=== PATIENT | male | born 1935 ===

== ENCOUNTER 2021-11-02 13:20 | Inpatient (IN) | payer MEDICARE ==
[2021-11-03 06:50] LABS: Basophils # (Auto) 0.1 K/mm3 (0.0-0.1); Basophils % (Auto) 0.9 % (0.0-1.8); Eosinophils # (Auto) 0.1 K/mm3 (0.0-0.4); Eosinophils % (Auto) 1.6 % (0.0-4.3); Hematocrit 46.3 % (35.5-45.6); Hemoglobin 15.4 gm/dl (11.8-15.2); Lymphocytes # (Auto) 1.6 K/mm3 (1.2-5.4); Lymphocytes % (Auto) 25.9 % (13.4-35.0); Mean Corpuscular HGB Conc 33 % (32-34); Mean Corpuscular Volume 98 fl (84-94); Monocytes # (Auto) 0.6 K/mm3 (0.0-0.8); Platelet Count 241 K/mm3 (140-440); Red Blood Count 4.73 M/mm3 (3.65-5.03); Red Cell Distribution Width 13.4 % (13.2-15.2)
[2021-11-03 07:13] LABS: Alanine Aminotransferase 14 units/L (7-56); Albumin 3.9 g/dL (3.9-5); BUN/Creatinine Ratio 24; Blood Urea Nitrogen 19 mg/dL (9-20); Calcium 9.1 mg/dL (8.4-10.2); HDL Cholesterol 50 mg/dL (40-59); Hemolysis Index 10; LDL Cholesterol,Direct 101 mg/dL (50-130)
--- NOTE | 2021-11-03 09:13 | History and Physical Report ---
GP History & Physical - History of Present Illness Date of admission: 11/02/21 Date of Examination: 11/03/21 Reason for Admission: Danger to self, Failure of Outpatient Treatment, Severe anxiety/depression History of Present Illness: HPI: Delusional, Paranoid, and non-compliance. Per referral source, "patient was found wandering in [place] by PD. Daughter wants him checked out due to increased confusion. Hx of Dementia." The patient was seen today. He is an 86y/o male admitted to [facility] after PD found him wandering. The patient was said to be delusional and paranoid. During my evaluation the patient is [place]. He is confused and forgetful. The patient has poor insight and unable to give any history or into what's presently going with him. He says "I have problems with my memory." He says "I see the clock and all that but that's just it." He does not know why he was admitted into the hospital. He says "I actually don't know anything." PAST PSYCHIATRIC HISTORY Unable to assess PAST MEDICAL HISTORY: None reported Family Psychiatric History: None reported or documented SOCIAL HISTORY Unable to assess REVIEW OF SYSTEMS Unable to assess MENTAL STATUS EXAMINATION Unable to assess Assessment and Plan Dementia with Behavioral Disturbance Treatment Plan Patient admitted for inpatient psychiatric evaluation, medication adjustment and close monitoring The patient's behavior, mood, sleep and appetite will be closely monitored. Patient enrolled in individual and group therapeutic sessions and encouraged to attend. Patient provided with a safe and structured environment. Patient's physical health needs will be addressed by the Hospitalist. Hospitalist Consulted Labs including CBC, CMP, Lipid profile and Hemoglobin A1C levels ordered for baseline reference Social Assessment will be completed and the Regulatory Affairs Assistant will work with patient and family to ensure a suitable and safe disposition Medication adjustment will be made as clinically indicated Continue home medications Usual Wellness Religion/Preservation: - Start Trazodone 50 mg po QHS & 50 mg po QHS PRN between 10 PM & 2 AM for insomnia - Start Melatonin 5 mg po QHS to promote circadian rhythm The patient agreed on the treatment plan, understood the risk, benefit, alternative treatment, potential consequence of no treatment, and gave informed consent. Estimated days: Post hospital care: primary care provider, psychiatric provider Case staffed with Dr. Dukes Legal Status: Voluntary Reaction to Hospitalization: Accepting Medications and Allergies Allergies Allergy/AdvReac Type Severity Reaction Status Date / Time cyclobenzaprine AdvReac HALLUCINATI Verified 09/20/19 12:06 [From Flexeril] ONS diazepam AdvReac SEVERE Verified 09/20/19 12:05 HALLUCINATION Home Medications Medication Instructions Recorded Confirmed Last Taken Type Aspirin EC [Halfprin EC] 81 mg PO QDAY 09/20/19 11/02/21 Unknown History Benazepril HCl [Lotensin] 40 mg PO DAILY 09/20/19 11/02/21 Unknown History Cyanocobalamin (Vitamin B-12) 2,000 mcg PO DAILY 09/20/19 11/02/21 Unknown History [Vitamin B-12] Folic Acid/Multivit,Iron,[place] 1 each PO DAILY 09/20/19 11/02/21 Unknown History [One Daily Maximum Tablet] HYDROcodone/APAP 7.5-325 [[place] 7.5 mg PO PRN 09/20/19 11/02/21 Unknown History 7.5-325 mg TAB] [place]-3 Fatty Acids/Fish Oil [Fish 1,000 mg PO BID 09/20/19 11/02/21 Unknown History Oil] QUEtiapine [SEROquel] 25 mg PO QHS 09/20/19 11/02/21 Unknown History polyethylene glycoL 3350 [Miralax 17 gm PO BID 09/20/19 11/02/21 Unknown History 3350] DULoxetine [Cymbalta] 60 mg PO QDAY #30 capsule 09/27/19 11/02/21 Unknown Rx Doxepin [SINEquan] 25 mg PO QHS #30 capsule 09/27/19 11/02/21 Unknown Rx Active Meds: Active Medications Trazodone HCl (Trazodone 50 Mg Tab) 50 mg PO QHS [facility] Results - Results Labs/Vitals: Laboratory Last Values WBC 6.2 K/mm3 (4.5-11.0) 11/03/21 06:31 RBC 4.73 M/mm3 (3.65-5.03) 11/03/21 06:31 Hgb 15.4 gm/dl (11.8-15.2) H 11/03/21 06:31 Hct 46.3 % (35.5-45.6) H 11/03/21 06:31 MCV 98 fl (84-94) H 11/03/21 06:31 MCH 33 pg (28-32) H 11/03/21 06:31 MCHC 33 % (32-34) 11/03/21 06:31 RDW 13.4 % (13.2-15.2) 11/03/21 06:31 Plt Count 241 K/mm3 (140-440) 11/03/21 06:31 Lymph % (Auto) 25.9 % (13.4-35.0) 11/03/21 06:31 [place] % (Auto) 10.0 % (0.0-7.3) H 11/03/21 06:31 Eos % (Auto) 1.6 % (0.0-4.3) 11/03/21 06:31 Baso % (Auto) 0.9 % (0.0-1.8) 11/03/21 06:31 Lymph # (Auto) 1.6 K/mm3 (1.2-5.4) 11/03/21 06:31 [place] # (Auto) 0.6 K/mm3 (0.0-0.8) 11/03/21 06:31 Eos # (Auto) 0.1 K/mm3 (0.0-0.4) 11/03/21 06:31 Baso # (Auto) 0.1 K/mm3 (0.0-0.1) 11/03/21 06:31 Seg Neutrophils % 61.6 % (40.0-70.0) 11/03/21 06:31 Seg Neutrophils # 3.8 K/mm3 (1.8-7.7) 11/03/21 06:31 Sodium 142 mmol/L (137-145) 11/03/21 06:31 Potassium 4.0 mmol/L (3.6-5.0) 11/03/21 06:31 Chloride 108.0 mmol/L (98-107) H 11/03/21 06:31 Carbon Dioxide 24 mmol/L (22-30) 11/03/21 06:31 Anion Gap 14 mmol/L 11/03/21 06:31 BUN 19 mg/dL (9-20) 11/03/21 06:31 Creatinine 0.8 mg/dL (0.8-1.3) 11/03/21 06:31 Estimated GFR > 60 ml/min 11/03/21 06:31 BUN/Creatinine Ratio 24 % 11/03/21 06:31 Glucose 86 mg/dL (75-100) 11/03/21 06:31 Hemoglobin A1c 5.2 % (4-6) 11/03/21 06:31 Calcium 9.1 mg/dL (8.4-10.2) 11/03/21 06:31 Total Bilirubin 0.50 mg/dL (0.1-1.2) 11/03/21 06:31 AST 15 units/L (5-40) 11/03/21 06:31 ALT 14 units/L (7-56) 11/03/21 06:31 Alkaline Phosphatase 69 units/L (35-129) 11/03/21 06:31 Total Protein 6.2 g/dL (6.3-8.2) L 11/03/21 06:31 Albumin 3.9 g/dL (3.9-5) 11/03/21 06:31 Albumin/Globulin Ratio 1.7 % 11/03/21 06:31 Triglycerides 78 mg/dL (2-149) 11/03/21 06:31 Cholesterol 160 mg/dL (50-199) 11/03/21 06:31 LDL Cholesterol Direct 101 mg/dL (50-130) 11/03/21 06:31 HDL Cholesterol 50 mg/dL (40-59) 11/03/21 06:31 Cholesterol/HDL Ratio 3.20 % 11/03/21 06:31 TSH 1.250 mlU/mL (0.270-4.200) 11/03/21 06:31 Last Vital Signs Temp 97.5 F L 11/02/21 22:19 Pulse 75 11/02/21 22:19 Resp 18 11/02/21 22:19 BP 160/88 11/02/21 22:19 Pulse Ox 100 11/02/21 22:19 Physical Examination - Constitutional Vitals: Vital Signs Temp Pulse Resp BP Pulse Ox 97.5 F L 75 18 160/88 100 11/02/21 22:19 11/02/21 22:19 11/02/21 22:19 11/02/21 22:19 11/02/21 22:19 Temperature -Last 24 Hours Temperature 97.5 F Mental Status Exam - Vital signs Last Vital Signs Temp 97.5 F L 11/02/21 22:19 Pulse 75 11/02/21 22:19 Resp 18 11/02/21 22:19 BP 160/88 11/02/21 22:19 Pulse Ox 100 11/02/21 22:19 Physician Certification - Certification Statement Physician Certification Statement: This is an acknowledgement statement that JOYCE CHADWICK is a 86 year old M who requires inpatient psychiatric admission for treatment which could reasonably be expected to improve the patient's condition for Estimated period of time patient will need to remain in the hospital: [ ] Plan for post-hospital care: [ ]
[2021-11-03] MEDS ORDERED: BENAZEPRIL HCL 40 MG PO SCH (10:00)
[2021-11-03] MEDS ORDERED: IRON PO SCH (10:00)
[2021-11-03] MEDS ORDERED: FOLIC ACID PO SCH (10:00)
[2021-11-03] MEDS ORDERED: MULTIVITAMIN PO SCH (10:00)
[2021-11-03] MEDS ORDERED: MINERALS PO SCH (10:00)
[2021-11-03] MEDS ORDERED: [UNRECOGNIZED DRUG - OTHER] PO SCH (10:00)
[2021-11-03] MEDS ORDERED: CYANOCOBALAMIN 2000 MCG PO SCH (10:00)
[2021-11-03] MEDS: OMEGA-3 FATTY ACIDS/FISH OIL 1 GRAM CAP PO SCH ×2 (10:43→21:17)
[2021-11-03] MEDS: ASPIRIN EC 81 MG TAB PO SCH (10:43)
[2021-11-03] MEDS: MULTIVITAMINS,THER W-MINERALS TAB PO SCH (10:43)
[2021-11-03] MEDS: DULoxetine 30 MG CAP PO SCH (10:43)
[2021-11-03] MEDS: LISINOPRIL 40 MG TAB PO SCH (11:43)
[2021-11-03] MEDS ORDERED: HYDROcodone/ACETAMINOPHEN 7.5-325MG TAB PO PRN (14:00)
[2021-11-03] MEDS: POLYETHYLENE GLYCOL 3350 17 GM POWDER PO SCH ×2 (15:00→21:17)
--- NOTE | 2021-11-03 16:18 | Consultation ---
History of Present Illness - Reason for Consult Consult date: 11/03/21 Medical Management Requesting physician: ELISEO GROSSMAN - History of Present Illness 86 YO Male with Vascular Dementia with Behavioral Disturbance, Cerebral Atherosclerosis, HTN, CAD S/P Stent placement, GERD, LDD, OA, Skin Cancer, MDD, admitted to [facility] for psychiatric stabilization. Consult placed by Dr. Grossman for medical management. The patient was seen and evaluated in the recreation room. Patient denies fever, chills, chest pain, palpitation, productive cough, skin rash, recent contact, no exposure to COVID-19. No reported nursing events. Patient is at baseline level of cognition and function. Past History Past Medical History: arthritis, cancer, GERD, hypertension Past Surgical History: Other (Back surgery) Social history: , lives with family Family history: hypertension Medications and Allergies Allergies Allergy/AdvReac Type Severity Reaction Status Date / Time cyclobenzaprine AdvReac HALLUCINATI Verified 09/20/19 12:06 [From Flexeril] ONS diazepam AdvReac SEVERE Verified 09/20/19 12:05 HALLUCINATION Home Medications Medication Instructions Recorded Confirmed Last Taken Type Aspirin EC [Halfprin EC] 81 mg PO QDAY 09/20/19 11/02/21 Unknown History Benazepril HCl [Lotensin] 40 mg PO DAILY 09/20/19 11/02/21 Unknown History Cyanocobalamin (Vitamin B-12) 2,000 mcg PO DAILY 09/20/19 11/02/21 Unknown History [Vitamin B-12] Folic Acid/Multivit,Iron,Field Service Rep 1 each PO DAILY 09/20/19 11/02/21 Unknown History [One Daily Maximum Tablet] HYDROcodone/APAP 7.5-325 [[place] 7.5 mg PO PRN 09/20/19 11/02/21 Unknown History 7.5-325 mg TAB] [place]-3 Fatty Acids/Fish Oil [Fish 1,000 mg PO BID 09/20/19 11/02/21 Unknown [place] Oil] QUEtiapine [SEROquel] 25 mg PO QHS 09/20/19 11/02/21 Unknown History polyethylene glycoL 3350 [Miralax 17 gm PO BID 09/20/19 11/02/21 Unknown History 3350] DULoxetine [Cymbalta] 60 mg PO QDAY #30 capsule 09/27/19 11/02/21 Unknown Rx Doxepin [SINEquan] 25 mg PO QHS #30 capsule 09/27/19 11/02/21 Unknown Rx Active Meds: Active Medications Hydrocodone Bitart/Acetaminophen (Hydrocodone/Acetaminophen 7.5-325mg Tab) 1 each PO Q8HR PRN PRN Reason: Pain, Moderate (4-6) Aspirin (Aspirin Ec 81 Mg Tab) 81 mg PO QDAY [facility] Last Admin: 11/03/21 10:43 Dose: 81 mg Cyanocobalamin (Cyanocobalamin (Vit B-12) 1000 Mcg Tab) 2,000 mcg PO QDAY [facility] Doxepin HCl (Doxepin 25 Mg Cap) 25 mg PO QHS [facility] Duloxetine HCl (Duloxetine 30 Mg Cap) 60 mg PO QDAY [facility] Last Admin: 11/03/21 10:43 Dose: 60 mg Fish Oil ([place]-3 Fatty Acids/Fish Oil 1 Gram Cap) 1,000 mg PO BID [facility] Last Admin: 11/03/21 10:43 Dose: 1,000 mg Lisinopril (Lisinopril 40 Mg Tab) 40 mg PO QDAY [facility] Last Admin: 11/03/21 11:43 Dose: Not Given Multivitamins/Minerals (Multivitamins,Ther W-Minerals Tab) 1 each PO QDAY [facility] Last Admin: 11/03/21 10:43 Dose: 1 each Polyethylene Glycol (Polyethylene Glycol 3350 17 Gm Powder) 17 gm PO BID [facility] Last Admin: 11/03/21 15:00 Dose: Not Given Quetiapine Fumarate (Quetiapine 25 Mg Tab) 25 mg PO QHS [facility] Trazodone HCl (Trazodone 50 Mg Tab) 50 mg PO QHS [facility] Review of Systems Constitutional: no weight loss, no weight gain, no fever, no chills Ears, nose, mouth and throat: no ear pain, no ear discharge, no nasal discharge Cardiovascular: no chest pain, no orthopnea, no palpitations, no rapid/irregular heart beat, no edema Respiratory: no cough, no excessive sputum, no dyspnea on exertion Gastrointestinal: no abdominal pain, no nausea, no vomiting, no constipation, no change in bowel habits Genitourinary Male: no hematuria, no flank pain, no discharge, no urinary frequency, no urinary hesitancy Rectal: no pain, no incontinence, no bleeding Musculoskeletal: no neck stiffness, no neck pain, no shooting arm pain, no arm numbness/tingling Integumentary: no rash, no pruritis, no redness, no jaundice Neurological: no head injury, no transient paralysis, no tingling, no seizures Psychiatric: anxiety, depression, difficulties concentrating, mood swings Endocrine: no cold intolerance, no heat intolerance, no polydipsia Hematologic/Lymphatic: no easy bruising, no easy bleeding, no lymphadenopathy Allergic/Immunologic: no urticaria, no wheezing, no persistent infections, no angioedema Exam - Constitutional Vitals: Temp Pulse Resp BP Pulse Ox 97.5 F L 91 H 16 126/71 98 11/02/21 22:19 11/03/21 08:43 11/03/21 08:43 11/03/21 08:43 11/03/21 08:43 General appearance: Present: no acute distress, well-nourished - EENT Eyes: Present: PERRL ENT: hearing intact, clear oral mucosa - Neck Neck: Present: supple, normal ROM - Respiratory Respiratory effort: normal Respiratory: bilateral: CTA - Cardiovascular Heart Sounds: Present: S1 & S2. Absent: rub, click - Extremities Extremities: pulses symmetrical, No edema Peripheral Pulses: within normal limits - Abdominal General gastrointestinal: Present: soft, non-tender, non-distended, normal bowel sounds Male genitourinary: Present: normal - Integumentary Integumentary: Present: clear, warm, dry - Musculoskeletal Musculoskeletal: gait normal, strength equal bilaterally - Psychiatric Psychiatric: appropriate mood/affect, intact judgment & insight - Neurologic Neurologic: CNII-XII intact, moves all extremities Results - Labs CBC & Chem 7: 11/03/21 06:31 11/03/21 06:31 Labs: Abnormal lab results 11/03/21 11/03/21 Range/Units 06:31 06:31 Hgb 15.4 H (11.8-15.2) gm/dl Hct 46.3 H (35.5-45.6) % MCV 98 H (84-94) fl MCH 33 H (28-32) pg [place] % (Auto) 10.0 H (0.0-7.3) % Chloride 108.0 H (98-107) mmol/L Total Protein 6.2 L (6.3-8.2) g/dL Assessment and Plan - Patient Problems (1) Vascular dementia with behavioral disturbance Current Visit: Yes Status: Acute Plan to address problem: Verbal prompting, verbal redirection, benzodiazepine therapy as clinically indicated, supportive care. (2) Cerebral atherosclerosis Current Visit: Yes Status: Acute Plan to address problem: Risk factor reduction, antiplatelet therapy as clinically indicated, supportive care. (3) Major depression Current Visit: Yes Status: Acute Plan to address problem: Supportive care, continue medical management. (4) Coronary artery disease Current Visit: No Status: Chronic Qualifiers: Coronary Disease-Associated Artery/Lesion type: [place] artery [place] vs. transplanted heart: [place] heart Associated angina: without angina Qualified Code(s): I25.10 - Atherosclerotic heart disease of [place] coronary artery without angina pectoris Plan to address problem: Supportive care, continue medical management, risk factor reduction, antiplatel et therapy as clinically indicated. (5) GERD (gastroesophageal reflux disease) Current Visit: No Status: Chronic Qualifiers: Esophagitis presence: without esophagitis Qualified Code(s): K21.9 - Gastro-esophageal reflux disease without esophagitis Plan to address problem: PPI therapy, supportive care. (6) Hypertension Current Visit: No Status: Chronic Qualifiers: Hypertension type: primary hypertension Qualified Code(s): I10 - Essential (primary) hypertension Plan to address problem: Monitor blood pressure every shift, continue medical management (7) Advance care planning Current Visit: Yes Status: Acute Plan to address problem: Disease education conducted, care plan discussed, diagnoses discussed, prognosis discussed, patient is full code. Patient knowledges understanding and agreem ent with care plan, +30 minutes.
[2021-11-03] MEDS: traZODone 50 MG TAB PO SCH (21:17)
[2021-11-03] MEDS: QUEtiapine 25 MG TAB PO SCH (21:17)
[2021-11-03] MEDS: DOXEPIN 25 MG CAP PO SCH (21:17)
--- NOTE | 2021-11-04 08:07 | Progress Note ---
Subjective Date of service: 11/04/21 Principal diagnosis: Dementia with Behavioral Disturbance Subjective Comment: The patient was seen today. He is lying in bed awake. He is calm and cooperative. He is pleasant. The patient is [place]. He is confused and has poor insight. He says he slept good. He says "I was asleep." He repeated this twice. I ask the patient how did he feel, he says "fine, except I was asleep." He denies SI/HI. The patient has been noted to have periods of agitation, and reported delusions from staff and family. REVIEW OF SYSTEMS Unable to assess MENTAL STATUS EXAMINATION Unable to assess Assessment and Plan Dementia with Behavioral Disturbance Treatment Plan Patient admitted for inpatient psychiatric evaluation, medication adjustment and close monitoring The patient's behavior, mood, sleep and appetite will be closely monitored. Patient enrolled in individual and group therapeutic sessions and encouraged to attend. Patient provided with a safe and structured environment. Patient's physical health needs will be addressed by the Hospitalist. Hospitalist Consulted Labs including CBC, CMP, Lipid profile and Hemoglobin A1C levels ordered for baseline reference Social Assessment will be completed and the Open Hearth Laborer will work with patient and family to ensure a suitable and safe disposition Medication adjustment will be made as clinically indicated Start Valproic acid 125mg po daily Usual Wellness Shinto/Preservation: - Start Trazodone 50 mg po QHS & 50 mg po QHS PRN between 10 PM & 2 AM for insomnia - Start Melatonin 5 mg po QHS to promote circadian rhythm The patient agreed on the treatment plan, understood the risk, benefit, alternative treatment, potential consequence of no treatment, and gave informed consent. Estimated days: Post hospital care: primary care provider, psychiatric provider Case staffed with Dr. Dukes Medications and Allergies Allergies Allergy/AdvReac Type Severity Reaction Status Date / Time cyclobenzaprine AdvReac HALLUCINATI Verified 09/20/19 12:06 [From Flexeril] ONS diazepam AdvReac SEVERE Verified 09/20/19 12:05 HALLUCINATION Home Medications Medication Instructions Recorded Confirmed Last Taken Type Aspirin EC [Halfprin EC] 81 mg PO QDAY 09/20/19 11/02/21 Unknown History Benazepril HCl [Lotensin] 40 mg PO DAILY 09/20/19 11/02/21 Unknown History Cyanocobalamin (Vitamin B-12) 2,000 mcg PO DAILY 09/20/19 11/02/21 Unknown History [Vitamin B-12] Folic Acid/Multivit,Iron,Office Clin Asst 1 each PO DAILY 09/20/19 11/02/21 Unknown History [One Daily Maximum Tablet] HYDROcodone/APAP 7.5-325 [[place] 7.5 mg PO PRN 09/20/19 11/02/21 Unknown History 7.5-325 mg TAB] [place]-3 Fatty Acids/Fish Oil [Fish 1,000 mg PO BID 09/20/19 11/02/21 Unknown History Oil] QUEtiapine [SEROquel] 25 mg PO QHS 09/20/19 11/02/21 Unknown History polyethylene glycoL 3350 [Miralax 17 gm PO BID 09/20/19 11/02/21 Unknown History 3350] DULoxetine [Cymbalta] 60 mg PO QDAY #30 capsule 09/27/19 11/02/21 Unknown Rx Doxepin [SINEquan] 25 mg PO QHS #30 capsule 09/27/19 11/02/21 Unknown Rx Active Meds: Active Medications Hydrocodone Bitart/Acetaminophen (Hydrocodone/Acetaminophen 7.5-325mg Tab) 1 each PO Q8HR PRN PRN Reason: Pain, Moderate (4-6) Aspirin (Aspirin Ec 81 Mg Tab) 81 mg PO QDAY [facility] Last Admin: 11/03/21 10:43 Dose: 81 mg Cyanocobalamin (Cyanocobalamin (Vit B-12) 1000 Mcg Tab) 2,000 mcg PO QDAY [facility] Doxepin HCl (Doxepin 25 Mg Cap) 25 mg PO QHS [facility] Last Admin: 11/03/21 21:17 Dose: 25 mg Duloxetine HCl (Duloxetine 30 Mg Cap) 60 mg PO QDAY [facility] Last Admin: 11/03/21 10:43 Dose: 60 mg Fish Oil ([place]-3 Fatty Acids/Fish Oil 1 Gram Cap) 1,000 mg PO BID [facility] Last Admin: 11/03/21 21:17 Dose: 1,000 mg Lisinopril (Lisinopril 40 Mg Tab) 40 mg PO QDAY [facility] Last Admin: 11/03/21 11:43 Dose: Not Given Multivitamins/Minerals (Multivitamins,Ther W-Minerals Tab) 1 each PO QDAY [facility] Last Admin: 11/03/21 10:43 Dose: 1 each Polyethylene Glycol (Polyethylene Glycol 3350 17 Gm Powder) 17 gm PO BID [facility] Last Admin: 11/03/21 21:17 Dose: 17 gm Quetiapine Fumarate (Quetiapine 25 Mg Tab) 25 mg PO QHS [facility] Last Admin: 11/03/21 21:17 Dose: 25 mg Trazodone HCl (Trazodone 50 Mg Tab) 50 mg PO QHS [facility] Last Admin: 11/03/21 21:17 Dose: 50 mg Results - Results Labs/Vitals: Laboratory Last Values WBC 6.2 K/mm3 (4.5-11.0) 11/03/21 06:31 RBC 4.73 M/mm3 (3.65-5.03) 11/03/21 06:31 Hgb 15.4 gm/dl (11.8-15.2) H 11/03/21 06:31 Hct 46.3 % (35.5-45.6) H 11/03/21 06:31 MCV 98 fl (84-94) H 11/03/21 06:31 MCH 33 pg (28-32) H 11/03/21 06:31 MCHC 33 % (32-34) 11/03/21 06:31 RDW 13.4 % (13.2-15.2) 11/03/21 06:31 Plt Count 241 K/mm3 (140-440) 11/03/21 06:31 Lymph % (Auto) 25.9 % (13.4-35.0) 11/03/21 06:31 [place] % (Auto) 10.0 % (0.0-7.3) H 11/03/21 06:31 Eos % (Auto) 1.6 % (0.0-4.3) 11/03/21 06:31 Baso % (Auto) 0.9 % (0.0-1.8) 11/03/21 06:31 Lymph # (Auto) 1.6 K/mm3 (1.2-5.4) 11/03/21 06:31 [place] # (Auto) 0.6 K/mm3 (0.0-0.8) 11/03/21 06:31 Eos # (Auto) 0.1 K/mm3 (0.0-0.4) 11/03/21 06:31 Baso # (Auto) 0.1 K/mm3 (0.0-0.1) 11/03/21 06:31 Seg Neutrophils % 61.6 % (40.0-70.0) 11/03/21 06:31 Seg Neutrophils # 3.8 K/mm3 (1.8-7.7) 11/03/21 06:31 Sodium 142 mmol/L (137-145) 11/03/21 06:31 Potassium 4.0 mmol/L (3.6-5.0) 11/03/21 06:31 Chloride 108.0 mmol/L (98-107) H 11/03/21 06:31 Carbon Dioxide 24 mmol/L (22-30) 11/03/21 06:31 Anion Gap 14 mmol/L 11/03/21 06:31 BUN 19 mg/dL (9-20) 11/03/21 06:31 Creatinine 0.8 mg/dL (0.8-1.3) 11/03/21 06:31 Estimated GFR > 60 ml/min 11/03/21 06:31 BUN/Creatinine Ratio 24 % 11/03/21 06:31 Glucose 86 mg/dL (75-100) 11/03/21 06:31 Hemoglobin A1c 5.2 % (4-6) 11/03/21 06:31 Calcium 9.1 mg/dL (8.4-10.2) 11/03/21 06:31 Total Bilirubin 0.50 mg/dL (0.1-1.2) 11/03/21 06:31 AST 15 units/L (5-40) 11/03/21 06:31 ALT 14 units/L (7-56) 11/03/21 06:31 Alkaline Phosphatase 69 units/L (35-129) 11/03/21 06:31 Total Protein 6.2 g/dL (6.3-8.2) L 11/03/21 06:31 Albumin 3.9 g/dL (3.9-5) 11/03/21 06:31 Albumin/Globulin Ratio 1.7 % 11/03/21 06:31 Triglycerides 78 mg/dL (2-149) 11/03/21 06:31 Cholesterol 160 mg/dL (50-199) 11/03/21 06:31 LDL Cholesterol Direct 101 mg/dL (50-130) 11/03/21 06:31 HDL Cholesterol 50 mg/dL (40-59) 11/03/21 06:31 Cholesterol/HDL Ratio 3.20 % 11/03/21 06:31 TSH 1.250 mlU/mL (0.270-4.200) 11/03/21 06:31 Last Vital Signs Temp 98.4 F 11/03/21 22:00 Pulse 92 H 11/03/21 22:00 Resp 18 11/03/21 22:00 BP 143/80 11/03/21 22:00 Pulse Ox 96 11/03/21 22:00
[2021-11-04] MEDS: CYANOCOBALAMIN (VIT B-12) 1000 MCG TAB PO SCH (09:54)
[2021-11-04] MEDS: OMEGA-3 FATTY ACIDS/FISH OIL 1 GRAM CAP PO SCH ×2 (09:55→21:27)
[2021-11-04] MEDS: DULoxetine 30 MG CAP PO SCH (09:55)
[2021-11-04] MEDS: MULTIVITAMINS,THER W-MINERALS TAB PO SCH (09:55)
[2021-11-04] MEDS: VALPROIC ACID 250 MG/5 ML ORAL LIQD PO SCH (09:55)
[2021-11-04] MEDS: ASPIRIN EC 81 MG TAB PO SCH (09:55)
[2021-11-04] MEDS: POLYETHYLENE GLYCOL 3350 17 GM POWDER PO SCH ×2 (10:06→21:28)
[2021-11-04] MEDS: LISINOPRIL 40 MG TAB PO SCH (10:06)
--- NOTE | 2021-11-04 20:21 | Progress Note ---
Assessment and Plan - Patient Problems (1) Vascular dementia with behavioral disturbance Current Visit: Yes Status: Acute Plan to address problem: Verbal prompting, verbal redirection, benzodiazepine therapy as clinically indicated, supportive care. (2) Cerebral atherosclerosis Current Visit: Yes Status: Acute Plan to address problem: Risk factor reduction, antiplatelet therapy as clinically indicated, supportive care. (3) Major depression Current Visit: Yes Status: Acute Plan to address problem: Supportive care, continue medical management. (4) Coronary artery disease Current Visit: No Status: Chronic Qualifiers: Coronary Disease-Associated Artery/Lesion type: [place] artery [place] vs. transplanted heart: [place] heart Associated angina: without angina Qualified Code(s): I25.10 - Atherosclerotic heart disease of [place] coronary artery without angina pectoris Plan to address problem: Supportive care, continue medical management, risk factor reduction, antiplatelet therapy as clinically indicated. (5) GERD (gastroesophageal reflux disease) Current Visit: No Status: Chronic Qualifiers: Esophagitis presence: without esophagitis Qualified Code(s): K21.9 - Gastro-esophageal reflux disease without esophagitis Plan to address problem: PPI therapy, supportive care. (6) Hypertension Current Visit: No Status: Chronic Qualifiers: Hypertension type: primary hypertension Qualified Code(s): I10 - Essential (primary) hypertension Plan to address problem: Monitor blood pressure every shift, continue medical management (7) Advance care planning Current Visit: Yes Status: Acute Plan to address problem: Disease education conducted, care plan discussed, diagnoses discussed, prognosis discussed, patient is full code. Patient knowledges understanding and agreement with care plan, +30 minutes. History Interval history: 86 YO Male with Vascular Dementia with Behavioral Disturbance, Cerebral Athe rosclerosis, HTN, CAD S/P Stent placement, GERD, LDD, OA, Skin Cancer, MDD, admitted to [facility] psych unit for psychiatric stabilization. Consult placed by Dr. Reyes for medical management. The patient was seen and evaluated in the recreation room. Patient is at baseline level of cognition and function. Hospitalist Physical - Constitutional Vitals: Temp Pulse Resp BP Pulse Ox 98.3 F 83 18 124/71 96 11/04/21 09:46 11/04/21 10:06 11/04/21 09:46 11/04/21 10:06 11/04/21 09:46 General appearance: Present: no acute distress, well-nourished - EENT Eyes: Present: PERRL ENT: hearing decreased - Neck Neck: Present: supple - Respiratory Respiratory: bilateral: CTA - Cardiovascular Rhythm: regular Heart Sounds: Present: S1 & S2 - Extremities Extremities: no ischemia Peripheral Pulses: within normal limits - Abdominal General gastrointestinal: soft, non-tender, non-distended - Integumentary Integumentary: Present: clear, dry - Psychiatric Psychiatric: cooperative - Neurologic Neurologic: CNII-XII intact Results - Labs CBC & Chem 7: 11/03/21 06:31 11/03/21 06:31 Labs: Laboratory Last Values WBC 6.2 K/mm3 (4.5-11.0) 11/03/21 06:31 RBC 4.73 M/mm3 (3.65-5.03) 11/03/21 06:31 Hgb 15.4 gm/dl (11.8-15.2) H 11/03/21 06:31 Hct 46.3 % (35.5-45.6) H 11/03/21 06:31 MCV 98 fl (84-94) H 11/03/21 06:31 MCH 33 pg (28-32) H 11/03/21 06:31 MCHC 33 % (32-34) 11/03/21 06:31 RDW 13.4 % (13.2-15.2) 11/03/21 06:31 Plt Count 241 K/mm3 (140-440) 11/03/21 06:31 Lymph % (Auto) 25.9 % (13.4-35.0) 11/03/21 06:31 [place] % (Auto) 10.0 % (0.0-7.3) H 11/03/21 06:31 Eos % (Auto) 1.6 % (0.0-4.3) 11/03/21 06:31 Baso % (Auto) 0.9 % (0.0-1.8) 11/03/21 06:31 Lymph # (Auto) 1.6 K/mm3 (1.2-5.4) 11/03/21 06:31 [place] # (Auto) 0.6 K/mm3 (0.0-0.8) 11/03/21 06:31 Eos # (Auto) 0.1 K/mm3 (0.0-0.4) 11/03/21 06:31 Baso # (Auto) 0.1 K/mm3 (0.0-0.1) 11/03/21 06:31 Seg Neutrophils % 61.6 % (40.0-70.0) 11/03/21 06:31 Seg Neutrophils # 3.8 K/mm3 (1.8-7.7) 11/03/21 06:31 Sodium 142 mmol/L (137-145) 11/03/21 06:31 Potassium 4.0 mmol/L (3.6-5.0) 11/03/21 06:31 Chloride 108.0 mmol/L (98-107) H 11/03/21 06:31 Carbon Dioxide 24 mmol/L (22-30) 11/03/21 06:31 Anion Gap 14 mmol/L 11/03/21 06:31 BUN 19 mg/dL (9-20) 11/03/21 06:31 Creatinine 0.8 mg/dL (0.8-1.3) 11/03/21 06:31 Estimated GFR > 60 ml/min 11/03/21 06:31 BUN/Creatinine Ratio 24 % 11/03/21 06:31 Glucose 86 mg/dL (75-100) 11/03/21 06:31 Hemoglobin A1c 5.2 % (4-6) 11/03/21 06:31 Calcium 9.1 mg/dL (8.4-10.2) 11/03/21 06:31 Total Bilirubin 0.50 mg/dL (0.1-1.2) 11/03/21 06:31 AST 15 units/L (5-40) 11/03/21 06:31 ALT 14 units/L (7-56) 11/03/21 06:31 Alkaline Phosphatase 69 units/L (35-129) 11/03/21 06:31 Total Protein 6.2 g/dL (6.3-8.2) L 11/03/21 06:31 Albumin 3.9 g/dL (3.9-5) 11/03/21 06:31 Albumin/Globulin Ratio 1.7 % 11/03/21 06:31 Triglycerides 78 mg/dL (2-149) 11/03/21 06:31 Cholesterol 160 mg/dL (50-199) 11/03/21 06:31 LDL Cholesterol Direct 101 mg/dL (50-130) 11/03/21 06:31 HDL Cholesterol 50 mg/dL (40-59) 11/03/21 06:31 Cholesterol/HDL Ratio 3.20 % 11/03/21 06:31 TSH 1.250 mlU/mL (0.270-4.200) 11/03/21 06:31 Lilly/IV: Voiding Method Toilet Active Medications - Current Medications Current Medications: Generic Name Dose Route Start Last Admin Trade Name Freq PRN Reason Stop Dose Admin Hydrocodone Bitart/Acetaminophen 1 each 11/03/21 14:00 Hydrocodone/Acetaminophen 7.5-325mg Tab PO Q8HR PRN Pain, Moderate (4-6) Aspirin 81 mg 11/03/21 10:00 11/04/21 09:55 Aspirin Ec 81 Mg Tab PO 81 mg QDAY AMINTA Administration Cyanocobalamin 2,000 mcg 11/04/21 10:00 11/04/21 09:54 Cyanocobalamin (Vit B-12) 1000 Mcg Tab PO 2,000 mcg QDAY AMINTA Administration Doxepin HCl 25 mg 11/03/21 22:00 11/03/21 21:17 Doxepin 25 Mg Cap PO 25 mg QHS AMINTA Administration Duloxetine HCl 60 mg 11/03/21 10:00 11/04/21 09:55 Duloxetine 30 Mg Cap PO 60 mg QDAY AMINTA Administration Fish Oil 1,000 mg 11/03/21 10:00 11/04/21 09:55 [place]-3 Fatty Acids/Fish Oil 1 Gram Cap PO 1,000 mg BID AMINTA Administration Lisinopril 40 mg 11/03/21 10:00 11/04/21 10:06 Lisinopril 40 Mg Tab PO 40 mg QDAY AMINTA Administration Multivitamins/Minerals 1 each 11/03/21 10:00 11/04/21 09:55 Multivitamins,Ther W-Minerals Tab PO 1 each QDAY AMINTA Administration Polyethylene Glycol 17 gm 11/03/21 10:00 11/04/21 10:06 Polyethylene Glycol 3350 17 Gm Powder PO Not Given BID AMINTA Quetiapine Fumarate 25 mg 11/03/21 22:00 11/03/21 21:17 Quetiapine 25 Mg Tab PO 25 mg QHS AMINTA Administration Trazodone HCl 50 mg 11/03/21 22:00 03/30/22 21:17 Trazodone 50 Mg Tab PO 50 mg QHS AMINTA Administration Valproic Acid 125 mg 11/04/21 10:00 11/04/21 09:55 Valproic Acid 250 Mg/5 Ml Oral Liqd PO 125 mg DAILY AMINTA Administration
[2021-11-04] MEDS: traZODone 50 MG TAB PO SCH (21:27)
[2021-11-04] MEDS: DOXEPIN 25 MG CAP PO SCH (21:28)
[2021-11-04] MEDS: QUEtiapine 25 MG TAB PO SCH (21:28)
--- NOTE | 2021-11-05 10:05 | Progress Note ---
Subjective Date of service: 11/05/21 Principal diagnosis: Dementia with Behavioral Disturbance Subjective Comment: 11/05/21:The patient was seen today. The patient stays he is doing well; patient is confused stating " This is going to be aan extremely difficult day for me, I'm going home and no one to pick me up." He denies any current suicidal/homicidal ideation and denies hallucinations. 11/04:The patient was seen today. He is lying in bed awake. He is calm and cooperative. He is pleasant. The patient [place]. He is confused and has poor insight. He says he slept good. He says "I was asleep." He repeated this twice. I ask the patient how did he feel, he says "fine, except I was asleep." He denies SI/HI. The patient has been noted to have periods of agitation, and reported delusions from staff and family. REVIEW OF SYSTEMS Unable to assess MENTAL STATUS EXAMINATION Unable to assess Assessment and Plan Dementia with Behavioral Disturbance Treatment Plan Patient admitted for inpatient psychiatric evaluation, medication adjustment and close monitoring The patient's behavior, mood, sleep and appetite will be closely monitored. Patient enrolled in individual and group therapeutic sessions and encouraged to attend. Patient provided with a safe and structured environment. Patient's physical health needs will be addressed by the Hospitalist. Hospitalist Consulted Labs including CBC, CMP, Lipid profile and Hemoglobin A1C levels ordered for baseline reference Social Assessment will be completed and the Medicare Biller will work with patient and family to ensure a suitable and safe disposition Medication adjustment will be made as clinically indicated Start Valproic acid 125mg po daily Usual Wellness [place]/Preservation: - Start Trazodone 50 mg po QHS & 50 mg po QHS PRN between 10 PM & 2 AM for insomnia - Start Melatonin 5 mg po QHS to promote circadian rhythm The patient agreed on the treatment plan, understood the risk, benefit, alternative treatment, potential consequence of no treatment, and gave informed consent. Estimated days: Post hospital care: primary care provider, psychiatric provider Case staffed with Dr. Dukes Medications and Allergies Medications and Allergies Allergies Allergy/AdvReac Type Severity Reaction Status Date / Time cyclobenzaprine AdvReac HALLUCINATI Verified 09/20/19 12:06 [From Flexeril] ONS diazepam AdvReac SEVERE Verified 09/20/19 12:05 HALLUCINATION Home Medications Medication Instructions Recorded Confirmed Last Taken Type Aspirin EC [Halfprin EC] 81 mg PO QDAY 09/20/19 11/02/21 Unknown History Benazepril HCl [Lotensin] 40 mg PO DAILY 09/20/19 11/02/21 Unknown History Cyanocobalamin (Vitamin B-12) 2,000 mcg PO DAILY 09/20/19 11/02/21 Unknown History [Vitamin B-12] Folic Acid/Multivit,Iron,[place] 1 each PO DAILY 09/20/19 11/02/21 Unknown History [One Daily Maximum Tablet] HYDROcodone/APAP 7.5-325 [[place] 7.5 mg PO PRN 09/20/19 11/02/21 Unknown History 7.5-325 mg TAB] [place]-3 Fatty Acids/Fish Oil [Fish 1,000 mg PO BID 09/20/19 11/02/21 Unknown History Oil] QUEtiapine [SEROquel] 25 mg PO QHS 09/20/19 11/02/21 Unknown History polyethylene glycoL 3350 [Miralax 17 gm PO BID 09/20/19 11/02/21 Unknown History 3350] DULoxetine [Cymbalta] 60 mg PO QDAY #30 capsule 09/27/19 11/02/21 Unknown Rx Doxepin [SINEquan] 25 mg PO QHS #30 capsule 09/27/19 11/02/21 Unknown Rx Active Meds: Active Medications Hydrocodone Bitart/Acetaminophen (Hydrocodone/Acetaminophen 7.5-325mg Tab) 1 each PO Q8HR PRN PRN Reason: Pain, Moderate (4-6) Aspirin (Aspirin Ec 81 Mg Tab) 81 mg PO QDAY [facility] Last Admin: 11/04/21 09:55 Dose: 81 mg Cyanocobalamin (Cyanocobalamin (Vit B-12) 1000 Mcg Tab) 2,000 mcg PO QDAY [facility] Last Admin: 11/04/21 09:54 Dose: 2,000 mcg Doxepin HCl (Doxepin 25 Mg Cap) 25 mg PO QHS [facility] Last Admin: 11/04/21 21:28 Dose: 25 mg Duloxetine HCl (Duloxetine 30 Mg Cap) 60 mg PO QDAY [facility] Last Admin: 11/04/21 09:55 Dose: 60 mg Fish Oil ([place]-3 Fatty Acids/Fish Oil 1 Gram Cap) 1,000 mg PO BID [facility] Last Admin: 11/04/21 21:27 Dose: 1,000 mg Lisinopril (Lisinopril 40 Mg Tab) 40 mg PO QDAY [facility] Last Admin: 11/04/21 10:06 Dose: 40 mg Multivitamins/Minerals (Multivitamins,Ther W-Minerals Tab) 1 each PO QDAY [facility] Last Admin: 11/04/21 09:55 Dose: 1 each Polyethylene Glycol (Polyethylene Glycol 3350 17 Gm Powder) 17 gm PO BID [facility] Last Admin: 11/04/21 21:28 Dose: 17 gm Quetiapine Fumarate (Quetiapine 25 Mg Tab) 25 mg PO QHS [facility] Last Admin: 11/04/21 21:28 Dose: 25 mg Trazodone HCl (Trazodone 50 Mg Tab) 50 mg PO QHS [facility] Last Admin: 11/04/21 21:27 Dose: 50 mg Valproic Acid (Valproic Acid 250 Mg/5 Ml Oral Liqd) 125 mg PO DAILY [facility] Last Admin: 11/04/21 09:55 Dose: 125 mg Results - Results Labs/Vitals: Laboratory Last Values WBC 6.2 K/mm3 (4.5-11.0) 11/03/21 06:31 RBC 4.73 M/mm3 (3.65-5.03) 11/03/21 06:31 Hgb 15.4 gm/dl (11.8-15.2) H 11/03/21 06:31 Hct 46.3 % (35.5-45.6) H 11/03/21 06:31 MCV 98 fl (84-94) H 11/03/21 06:31 MCH 33 pg (28-32) H 11/03/21 06:31 MCHC 33 % (32-34) 11/03/21 06:31 RDW 13.4 % (13.2-15.2) 11/03/21 06:31 Plt Count 241 K/mm3 (140-440) 11/03/21 06:31 Lymph % (Auto) 25.9 % (13.4-35.0) 11/03/21 06:31 [place] % (Auto) 10.0 % (0.0-7.3) H 11/03/21 06:31 Eos % (Auto) 1.6 % (0.0-4.3) 11/03/21 06:31 Baso % (Auto) 0.9 % (0.0-1.8) 11/03/21 06:31 Lymph # (Auto) 1.6 K/mm3 (1.2-5.4) 11/03/21 06:31 [place] # (Auto) 0.6 K/mm3 (0.0-0.8) 11/03/21 06:31 Eos # (Auto) 0.1 K/mm3 (0.0-0.4) 11/03/21 06:31 Baso # (Auto) 0.1 K/mm3 (0.0-0.1) 11/03/21 06:31 Seg Neutrophils % 61.6 % (40.0-70.0) 11/03/21 06:31 Seg Neutrophils # 3.8 K/mm3 (1.8-7.7) 11/03/21 06:31 Sodium 142 mmol/L (137-145) 11/03/21 06:31 Potassium 4.0 mmol/L (3.6-5.0) 11/03/21 06:31 Chloride 108.0 mmol/L (98-107) H 11/03/21 06:31 Carbon Dioxide 24 mmol/L (22-30) 11/03/21 06:31 Anion Gap 14 mmol/L 11/03/21 06:31 BUN 19 mg/dL (9-20) 11/03/21 06:31 Creatinine 0.8 mg/dL (0.8-1.3) 11/03/21 06:31 Estimated GFR > 60 ml/min 11/03/21 06:31 BUN/Creatinine Ratio 24 % 11/03/21 06:31 Glucose 86 mg/dL (75-100) 11/03/21 06:31 Hemoglobin A1c 5.2 % (4-6) 11/03/21 06:31 Calcium 9.1 mg/dL (8.4-10.2) 11/03/21 06:31 Total Bilirubin 0.50 mg/dL (0.1-1.2) 11/03/21 06:31 AST 15 units/L (5-40) 11/03/21 06:31 ALT 14 units/L (7-56) 11/03/21 06:31 Alkaline Phosphatase 69 units/L (35-129) 11/03/21 06:31 Total Protein 6.2 g/dL (6.3-8.2) L 11/03/21 06:31 Albumin 3.9 g/dL (3.9-5) 11/03/21 06:31 Albumin/Globulin Ratio 1.7 % 11/03/21 06:31 Triglycerides 78 mg/dL (2-149) 11/03/21 06:31 Cholesterol 160 mg/dL (50-199) 11/03/21 06:31 LDL Cholesterol Direct 101 mg/dL (50-130) 11/03/21 06:31 HDL Cholesterol 50 mg/dL (40-59) 11/03/21 06:31 Cholesterol/HDL Ratio 3.20 % 11/03/21 06:31 TSH 1.250 mlU/mL (0.270-4.200) 11/03/21 06:31 Last Vital Signs Temp 97.4 F L 11/04/21 22:00 Pulse 85 11/04/21 22:00 Resp 17 11/04/21 22:00 BP 138/74 11/04/21 22:00 Pulse Ox 96 11/04/21 22:00
[2021-11-05] MEDS: VALPROIC ACID 250 MG/5 ML ORAL LIQD PO SCH (10:53)
[2021-11-05] MEDS: DULoxetine 30 MG CAP PO SCH (10:54)
[2021-11-05] MEDS: MULTIVITAMINS,THER W-MINERALS TAB PO SCH (10:54)
[2021-11-05] MEDS: LISINOPRIL 40 MG TAB PO SCH (10:54)
[2021-11-05] MEDS: OMEGA-3 FATTY ACIDS/FISH OIL 1 GRAM CAP PO SCH ×2 (10:54→21:07)
[2021-11-05] MEDS: CYANOCOBALAMIN (VIT B-12) 1000 MCG TAB PO SCH (10:55)
[2021-11-05] MEDS: POLYETHYLENE GLYCOL 3350 17 GM POWDER PO SCH ×2 (10:55→21:07)
[2021-11-05] MEDS: ASPIRIN EC 81 MG TAB PO SCH (10:55)
[2021-11-05] MEDS: traZODone 50 MG TAB PO SCH (21:07)
[2021-11-05] MEDS: DOXEPIN 25 MG CAP PO SCH (21:07)
[2021-11-05] MEDS: QUEtiapine 25 MG TAB PO SCH (21:07)
--- NOTE | 2021-11-06 09:09 | Progress Note ---
Subjective Date of service: 11/06/21 Principal diagnosis: Dementia with Behavioral Disturbance Subjective Comment: 11/06/21: The patient was seen this morning. The patient continues to be confused. He reports sleep and appetite as good. He denies any current suicidal/homicidal ideation and denies hallucinations. 11/05/21:The patient was seen today. The patient stays he is doing well; patient is confused stating " This is going to be an extremely difficult day for me, I'm going home and no one to pick me up." He denies any current suicidal/homicidal ideation and denies hallucinations. 11/04:The patient was seen today. He is lying in bed awake. He is calm and cooperative. He is pleasant. The patient is [place]. He is confused and has poor insight. He says he slept good. He says "I was asleep." He repeated this twice. I ask the patient how did he feel, he says "fine, except I was asleep." He denies SI/HI. The patient has been noted to have periods of agitation, and reported delusions from staff and family. REVIEW OF SYSTEMS Unable to assess MENTAL STATUS EXAMINATION Unable to assess Assessment and Plan Dementia with Behavioral Disturbance Treatment Plan Patient admitted for inpatient psychiatric evaluation, medication adjustment and close monitoring The patient's behavior, mood, sleep and appetite will be closely monitored. Patient enrolled in individual and group therapeutic sessions and encouraged to attend. Patient provided with a safe and structured environment. Patient's physical health needs will be addressed by the Hospitalist. Hospitalist Consulted Labs including CBC, CMP, Lipid profile and Hemoglobin A1C levels ordered for baseline reference Social Assessment will be completed and the Agricultural Extension Specialist will work with patient and family to ensure a suitable and safe disposition Medication adjustment will be made as clinically indicated Start Valproic acid 125mg po daily Usual Wellness [place]/Preservation: - Start Trazodone 50 mg po QHS & 50 mg po QHS PRN between 10 PM & 2 AM for insomnia - Start Melatonin 5 mg po QHS to promote circadian rhythm The patient agreed on the treatment plan, understood the risk, benefit, alternative treatment, potential consequence of no treatment, and gave informed consent. Estimated days: Post hospital care: primary care provider, psychiatric provider Case staffed with Dr. Dukes Medications and Allergies Medications and Allergies Allergies Allergy/AdvReac Type Severity Reaction Status Date / Time cyclobenzaprine AdvReac HALLUCINATI Verified 09/20/19 12:06 [From Flexeril] ONS diazepam AdvReac SEVERE Verified 09/20/19 12:05 HALLUCINATION Home Medications Medication Instructions Recorded Confirmed Last Taken Type Aspirin EC [Halfprin EC] 81 mg PO QDAY 09/20/19 11/02/21 Unknown History Benazepril HCl [Lotensin] 40 mg PO DAILY 09/20/19 11/02/21 Unknown History Cyanocobalamin (Vitamin B-12) 2,000 mcg PO DAILY 09/20/19 11/02/21 Unknown History [Vitamin B-12] Folic Acid/Multivit,Iron,[place] 1 each PO DAILY 09/20/19 11/02/21 Unknown History [One Daily Maximum Tablet] HYDROcodone/APAP 7.5-325 [[place] 7.5 mg PO PRN 09/20/19 11/02/21 Unknown History 7.5-325 mg TAB] [place]-3 Fatty Acids/Fish Oil [Fish 1,000 mg PO BID 09/20/19 11/02/21 Unknown History Oil] QUEtiapine [SEROquel] 25 mg PO QHS 09/20/19 11/02/21 Unknown History polyethylene glycoL 3350 [Miralax 17 gm PO BID 09/20/19 11/02/21 Unknown History 3350] DULoxetine [Cymbalta] 60 mg PO QDAY #30 capsule 09/27/19 11/02/21 Unknown Rx Doxepin [SINEquan] 25 mg PO QHS #30 capsule 09/27/19 11/02/21 Unknown Rx Active Meds: Active Medications Hydrocodone Bitart/Acetaminophen (Hydrocodone/Acetaminophen 7.5-325mg Tab) 1 each PO Q8HR PRN PRN Reason: Pain, Moderate (4-6) Aspirin (Aspirin Ec 81 Mg Tab) 81 mg PO QDAY [facility] Last Admin: 11/05/21 10:55 Dose: 81 mg Cyanocobalamin (Cyanocobalamin (Vit B-12) 1000 Mcg Tab) 2,000 mcg PO QDAY [facility] Last Admin: 11/05/21 10:55 Dose: 2,000 mcg Doxepin HCl (Doxepin 25 Mg Cap) 25 mg PO QHS [facility] Last Admin: 11/05/21 21:07 Dose: 25 mg Duloxetine HCl (Duloxetine 30 Mg Cap) 60 mg PO QDAY [facility] Last Admin: 11/05/21 10:54 Dose: 60 mg Fish Oil ([place]-3 Fatty Acids/Fish Oil 1 Gram Cap) 1,000 mg PO BID [facility] Last Admin: 11/05/21 21:07 Dose: 1,000 mg Lisinopril (Lisinopril 40 Mg Tab) 40 mg PO QDAY [facility] Last Admin: 11/05/21 10:54 Dose: 40 mg Multivitamins/Minerals (Multivitamins,Ther W-Minerals Tab) 1 each PO QDAY [facility] Last Admin: 11/05/21 10:54 Dose: 1 each Polyethylene Glycol (Polyethylene Glycol 3350 17 Gm Powder) 17 gm PO BID [facility] Last Admin: 11/05/21 21:07 Dose: 17 gm Quetiapine Fumarate (Quetiapine 25 Mg Tab) 25 mg PO QHS [facility] Last Admin: 11/05/21 21:07 Dose: 25 mg Trazodone HCl (Trazodone 50 Mg Tab) 50 mg PO QHS [facility] Last Admin: 11/05/21 21:07 Dose: 50 mg Valproic Acid (Valproic Acid 250 Mg/5 Ml Oral Liqd) 125 mg PO DAILY [facility] Last Admin: 11/05/21 10:53 Dose: 125 mg Results - Results Labs/Vitals: Laboratory Last Values WBC 6.2 K/mm3 (4.5-11.0) 11/03/21 06:31 RBC 4.73 M/mm3 (3.65-5.03) 11/03/21 06:31 Hgb 15.4 gm/dl (11.8-15.2) H 11/03/21 06:31 Hct 46.3 % (35.5-45.6) H 11/03/21 06:31 MCV 98 fl (84-94) H 11/03/21 06:31 MCH 33 pg (28-32) H 11/03/21 06:31 MCHC 33 % (32-34) 11/03/21 06:31 RDW 13.4 % (13.2-15.2) 11/03/21 06:31 Plt Count 241 K/mm3 (140-440) 11/03/21 06:31 Lymph % (Auto) 25.9 % (13.4-35.0) 11/03/21 06:31 [place] % (Auto) 10.0 % (0.0-7.3) H 11/03/21 06:31 Eos % (Auto) 1.6 % (0.0-4.3) 11/03/21 06:31 Baso % (Auto) 0.9 % (0.0-1.8) 11/03/21 06:31 Lymph # (Auto) 1.6 K/mm3 (1.2-5.4) 11/03/21 06:31 [place] # (Auto) 0.6 K/mm3 (0.0-0.8) 11/03/21 06:31 Eos # (Auto) 0.1 K/mm3 (0.0-0.4) 11/03/21 06:31 Baso # (Auto) 0.1 K/mm3 (0.0-0.1) 11/03/21 06:31 Seg Neutrophils % 61.6 % (40.0-70.0) 11/03/21 06:31 Seg Neutrophils # 3.8 K/mm3 (1.8-7.7) 11/03/21 06:31 Sodium 142 mmol/L (137-145) 11/03/21 06:31 Potassium 4.0 mmol/L (3.6-5.0) 11/03/21 06:31 Chloride 108.0 mmol/L (98-107) H 11/03/21 06:31 Carbon Dioxide 24 mmol/L (22-30) 11/03/21 06:31 Anion Gap 14 mmol/L 11/03/21 06:31 BUN 19 mg/dL (9-20) 11/03/21 06:31 Creatinine 0.8 mg/dL (0.8-1.3) 11/03/21 06:31 Estimated GFR > 60 ml/min 11/03/21 06:31 BUN/Creatinine Ratio 24 % 11/03/21 06:31 Glucose 86 mg/dL (75-100) 11/03/21 06:31 Hemoglobin A1c 5.2 % (4-6) 11/03/21 06:31 Calcium 9.1 mg/dL (8.4-10.2) 11/03/21 06:31 Total Bilirubin 0.50 mg/dL (0.1-1.2) 11/03/21 06:31 AST 15 units/L (5-40) 11/03/21 06:31 ALT 14 units/L (7-56) 11/03/21 06:31 Alkaline Phosphatase 69 units/L (35-129) 11/03/21 06:31 Total Protein 6.2 g/dL (6.3-8.2) L 11/03/21 06:31 Albumin 3.9 g/dL (3.9-5) 11/03/21 06:31 Albumin/Globulin Ratio 1.7 % 11/03/21 06:31 Triglycerides 78 mg/dL (2-149) 11/03/21 06:31 Cholesterol 160 mg/dL (50-199) 11/03/21 06:31 LDL Cholesterol Direct 101 mg/dL (50-130) 11/03/21 06:31 HDL Cholesterol 50 mg/dL (40-59) 11/03/21 06:31 Cholesterol/HDL Ratio 3.20 % 11/03/21 06:31 TSH 1.250 mlU/mL (0.270-4.200) 11/03/21 06:31 Last Vital Signs Temp 97.8 F 11/05/21 22:00 Pulse 81 11/05/21 22:00 Resp 18 11/05/21 22:00 BP 150/72 11/05/21 22:00 Pulse Ox 99 11/05/21 22:00
[2021-11-06] MEDS ORDERED: ACETAMINOPHEN 325 MG TAB PO PRN (09:11)
[2021-11-06] MEDS: VALPROIC ACID 250 MG/5 ML ORAL LIQD PO SCH (09:14)
[2021-11-06] MEDS: LISINOPRIL 40 MG TAB PO SCH (09:14)
[2021-11-06] MEDS: OMEGA-3 FATTY ACIDS/FISH OIL 1 GRAM CAP PO SCH ×2 (09:14→21:11)
[2021-11-06] MEDS: CYANOCOBALAMIN (VIT B-12) 1000 MCG TAB PO SCH (09:14)
[2021-11-06] MEDS: ASPIRIN EC 81 MG TAB PO SCH (09:14)
[2021-11-06] MEDS: MULTIVITAMINS,THER W-MINERALS TAB PO SCH (09:15)
[2021-11-06] MEDS: POLYETHYLENE GLYCOL 3350 17 GM POWDER PO SCH ×2 (09:15→21:11)
[2021-11-06] MEDS: DULoxetine 30 MG CAP PO SCH (09:15)
--- NOTE | 2021-11-06 20:38 | Progress Note ---
Assessment and Plan - Patient Problems (1) Vascular dementia with behavioral disturbance Current Visit: Yes Status: Acute Plan to address problem: Verbal prompting, verbal redirection, benzodiazepine therapy as clinically indicated, supportive care. (2) Cerebral atherosclerosis Current Visit: Yes Status: Acute Plan to address problem: Risk factor reduction, antiplatelet therapy as clinically indicated, supportive care. (3) Major depression Current Visit: Yes Status: Acute Plan to address problem: Supportive care, continue medical management. (4) Coronary artery disease Current Visit: No Status: Chronic Qualifiers: Coronary Disease-Associated Artery/Lesion type: [place] artery [place] vs. transplanted heart: [place] heart Associated angina: without angina Qualified Code(s): I25.10 - Atherosclerotic heart disease of [place] coronary artery without angina pectoris Plan to address problem: Supportive care, continue medical management, risk factor reduction, antiplatelet therapy as clinically indicated. (5) GERD (gastroesophageal reflux disease) Current Visit: No Status: Chronic Qualifiers: Esophagitis presence: without esophagitis Qualified Code(s): K21.9 - Gastro-esophageal reflux disease without esophagitis Plan to address problem: PPI therapy, supportive care. (6) Hypertension Current Visit: No Status: Chronic Qualifiers: Hypertension type: primary hypertension Qualified Code(s): I10 - Essential (primary) hypertension Plan to address problem: Monitor blood pressure every shift, continue medical management (7) Advance care planning Current Visit: Yes Status: Acute Plan to address problem: Disease education conducted, care plan discussed, diagnoses discussed, prognosis discussed, patient is full code. Patient knowledges understanding and agreement with care plan, +30 minutes. History Interval history: 86 YO Male with Vascular Dementia with Behavioral Disturbance, Cerebral Athe rosclerosis, HTN, CAD S/P Stent placement, GERD, LDD, OA, Skin Cancer, MDD, admitted to [facility] for psychiatric stabilization. Consult placed by Dr. Reyes for medical management. The patient was seen and evaluated in the recreation room. Patient is at baseline level of cognition and function. Hospitalist Physical - Constitutional Vitals: Temp Pulse Resp BP Pulse Ox 98.5 F 73 18 125/60 99 11/06/21 09:36 11/06/21 09:36 11/06/21 09:36 11/06/21 09:36 11/06/21 09:36 General appearance: Present: no acute distress, well-nourished - EENT Eyes: Present: PERRL ENT: hearing decreased - Neck Neck: Present: supple - Respiratory Respiratory effort: normal Respiratory: bilateral: CTA - Cardiovascular Rhythm: regular Heart Sounds: Present: S1 & S2 - Extremities Extremities: no ischemia Peripheral Pulses: within normal limits - Abdominal General gastrointestinal: soft, non-tender, non-distended - Integumentary Integumentary: Present: clear, dry - Psychiatric Psychiatric: cooperative - Neurologic Neurologic: CNII-XII intact Results - Labs CBC & Chem 7: 11/03/21 06:31 11/03/21 06:31 Labs: Laboratory Last Values WBC 6.2 K/mm3 (4.5-11.0) 11/03/21 06:31 RBC 4.73 M/mm3 (3.65-5.03) 11/03/21 06:31 Hgb 15.4 gm/dl (11.8-15.2) H 11/03/21 06:31 Hct 46.3 % (35.5-45.6) H 11/03/21 06:31 MCV 98 fl (84-94) H 11/03/21 06:31 MCH 33 pg (28-32) H 11/03/21 06:31 MCHC 33 % (32-34) 11/03/21 06:31 RDW 13.4 % (13.2-15.2) 11/03/21 06:31 Plt Count 241 K/mm3 (140-440) 11/03/21 06:31 Lymph % (Auto) 25.9 % (13.4-35.0) 11/03/21 06:31 [place] % (Auto) 10.0 % (0.0-7.3) H 11/03/21 06:31 Eos % (Auto) 1.6 % (0.0-4.3) 11/03/21 06:31 Baso % (Auto) 0.9 % (0.0-1.8) 11/03/21 06:31 Lymph # (Auto) 1.6 K/mm3 (1.2-5.4) 11/03/21 06:31 [place] # (Auto) 0.6 K/mm3 (0.0-0.8) 11/03/21 06:31 Eos # (Auto) 0.1 K/mm3 (0.0-0.4) 11/03/21 06:31 Baso # (Auto) 0.1 K/mm3 (0.0-0.1) 11/03/21 06:31 Seg Neutrophils % 61.6 % (40.0-70.0) 11/03/21 06:31 Seg Neutrophils # 3.8 K/mm3 (1.8-7.7) 11/03/21 06:31 Sodium 142 mmol/L (137-145) 11/03/21 06:31 Potassium 4.0 mmol/L (3.6-5.0) 11/03/21 06:31 Chloride 108.0 mmol/L (98-107) H 11/03/21 06:31 Carbon Dioxide 24 mmol/L (22-30) 11/03/21 06:31 Anion Gap 14 mmol/L 11/03/21 06:31 BUN 19 mg/dL (9-20) 11/03/21 06:31 Creatinine 0.8 mg/dL (0.8-1.3) 11/03/21 06:31 Estimated GFR > 60 ml/min 11/03/21 06:31 BUN/Creatinine Ratio 24 % 11/03/21 06:31 Glucose 86 mg/dL (75-100) 11/03/21 06:31 Hemoglobin A1c 5.2 % (4-6) 11/03/21 06:31 Calcium 9.1 mg/dL (8.4-10.2) 11/03/21 06:31 Total Bilirubin 0.50 mg/dL (0.1-1.2) 11/03/21 06:31 AST 15 units/L (5-40) 11/03/21 06:31 ALT 14 units/L (7-56) 11/03/21 06:31 Alkaline Phosphatase 69 units/L (35-129) 11/03/21 06:31 Total Protein 6.2 g/dL (6.3-8.2) L 11/03/21 06:31 Albumin 3.9 g/dL (3.9-5) 11/03/21 06:31 Albumin/Globulin Ratio 1.7 % 11/03/21 06:31 Triglycerides 78 mg/dL (2-149) 11/03/21 06:31 Cholesterol 160 mg/dL (50-199) 11/03/21 06:31 LDL Cholesterol Direct 101 mg/dL (50-130) 11/03/21 06:31 HDL Cholesterol 50 mg/dL (40-59) 11/03/21 06:31 Cholesterol/HDL Ratio 3.20 % 11/03/21 06:31 TSH 1.250 mlU/mL (0.270-4.200) 11/03/21 06:31 Lilly/IV: Voiding Method Toilet Active Medications - Current Medications Current Medications: Generic Name Dose Route Start Last Admin Trade Name Freq PRN Reason Stop Dose Admin Acetaminophen 650 mg 11/06/21 09:11 Acetaminophen 325 Mg Tab PO Q6H PRN Pain, Mild (1-3) Hydrocodone Bitart/Acetaminophen 1 each 11/03/21 14:00 Hydrocodone/Acetaminophen 7.5-325mg Tab PO Q8HR PRN Pain, Moderate (4-6) Aspirin 81 mg 11/03/21 10:00 11/06/21 09:14 Aspirin Ec 81 Mg Tab PO 81 mg QDAY AMINTA Administration Cyanocobalamin 2,000 mcg 11/04/21 10:00 11/06/21 09:14 Cyanocobalamin (Vit B-12) 1000 Mcg Tab PO 2,000 mcg QDAY AMINTA Administration Doxepin HCl 25 mg 11/03/21 22:00 11/05/21 21:07 Doxepin 25 Mg Cap PO 25 mg QHS AMINTA Administration Duloxetine HCl 60 mg 11/03/21 10:00 11/06/21 09:15 Duloxetine 30 Mg Cap PO 60 mg QDAY AMINTA Administration Fish Oil 1,000 mg 11/03/21 10:00 11/06/21 09:14 [place]-3 Fatty Acids/Fish Oil 1 Gram Cap PO 1,000 mg BID AMINTA Administration Lisinopril 40 mg 11/03/21 10:00 11/06/21 09:14 Lisinopril 40 Mg Tab PO 40 mg QDAY AMINTA Administration Multivitamins/Minerals 1 each 11/03/21 10:00 11/06/21 09:15 Multivitamins,Ther W-Minerals Tab PO 1 each QDAY AMINTA Administration Polyethylene Glycol 17 gm 11/03/21 10:00 11/06/21 09:15 Polyethylene Glycol 3350 17 Gm Powder PO 17 gm BID AMINTA Administration Quetiapine Fumarate 25 mg 11/03/21 22:00 11/05/21 21:07 Quetiapine 25 Mg Tab PO 25 mg QHS AMINTA Administration Trazodone HCl 50 mg 11/03/21 22:00 11/05/21 21:07 Trazodone 50 Mg Tab PO 50 mg QHS AMINTA Administration Valproic Acid 125 mg 11/04/21 10:00 11/06/21 09:14 Valproic Acid 250 Mg/5 Ml Oral Liqd PO 125 mg DAILY AMINTA Administration
[2021-11-06] MEDS: DOXEPIN 25 MG CAP PO SCH (21:11)
[2021-11-06] MEDS: QUEtiapine 25 MG TAB PO SCH (21:11)
[2021-11-06] MEDS: traZODone 50 MG TAB PO SCH (21:11)
[2021-11-07] MEDS: POLYETHYLENE GLYCOL 3350 17 GM POWDER PO SCH ×3 (08:14→21:37)
[2021-11-07] MEDS: MULTIVITAMINS,THER W-MINERALS TAB PO SCH ×2 (08:14→10:00)
[2021-11-07] MEDS: CYANOCOBALAMIN (VIT B-12) 1000 MCG TAB PO SCH ×2 (08:14→10:00)
[2021-11-07] MEDS: DULoxetine 30 MG CAP PO SCH ×2 (08:14→10:00)
[2021-11-07] MEDS: ASPIRIN EC 81 MG TAB PO SCH ×2 (08:14→10:00)
[2021-11-07] MEDS: OMEGA-3 FATTY ACIDS/FISH OIL 1 GRAM CAP PO SCH ×3 (08:14→21:37)
[2021-11-07] MEDS: VALPROIC ACID 250 MG/5 ML ORAL LIQD PO SCH ×2 (08:15→10:00)
[2021-11-07] MEDS: LISINOPRIL 40 MG TAB PO SCH ×2 (08:15→10:00)
--- NOTE | 2021-11-07 09:36 | Progress Note ---
Subjective Date of service: 11/07/21 Principal diagnosis: Dementia with Behavioral Disturbance Subjective Comment: 11/07/21: The patient was seen at breakfast this morning. He is alert and oriented x2; the patient is [place]. The patient is confused " I have been asking for someone to call the police; I have a home and my and her children are trying to take over." He denies any current suicidal/homicidal ideation. No aggressive behavior noted. 11/06/21: The patient was seen this morning. The patient continues to be confused. He reports sleep and appetite as good. He denies any current suicidal/homicidal ideation and denies hallucinations. 11/05/21:The patient was seen today. The patient stays he is doing well; patient is confused stating " This is going to be an extremely difficult day for me, I'm going home and no one to pick me up." He denies any current suicidal/homicidal ideation and denies hallucinations. 11/04:The patient was seen today. He is lying in bed awake. He is calm and cooperative. He is pleasant. The patient is AKH[place]. He is confused and has poor insight. He says he slept good. He says "I was asleep." He repeated this twice. I ask the patient how did he feel, he says "fine, except I was asleep." He denies SI/HI. The patient has been noted to have periods of agitation, and reported delusions from staff and family. REVIEW OF SYSTEMS Unable to assess MENTAL STATUS EXAMINATION Unable to assess Assessment and Plan Dementia with Behavioral Disturbance Treatment Plan Patient admitted for inpatient psychiatric evaluation, medication adjustment and close monitoring The patient's behavior, mood, sleep and appetite will be closely monitored. Patient enrolled in individual and group therapeutic sessions and encouraged to attend. Patient provided with a safe and structured environment. Patient's physical health needs will be addressed by the Hospitalist. Hospi talist Consulted Labs including CBC, CMP, Lipid profile and Hemoglobin A1C levels ordered for baseline reference Social Assessment will be completed and the Gold Frame Assembler will work with patient and family to ensure a suitable and safe disposition Medication adjustment will be made as clinically indicated Start Valproic acid 125mg po daily [employer]/Preservation: - Start Trazodone 50 mg po QHS & 50 mg po QHS PRN between 10 PM & 2 AM for insomnia - Start Melatonin 5 mg po QHS to promote circadian rhythm The patient agreed on the treatment plan, understood the risk, benefit, alternative treatment, potential consequence of no treatment, and gave informed consent. Estimated days: Post hospital care: primary care provider, psychiatric provider Case staffed with Dr. Dukes Medications and Allergies Medications and Allergies Allergies Allergy/AdvReac Type Severity Reaction Status Date / Time cyclobenzaprine AdvReac HALLUCINATI Verified 09/20/19 12:06 [From Flexeril] ONS diazepam AdvReac SEVERE Verified 09/20/19 12:05 HALLUCINATION Home Medications Medication Instructions Recorded Confirmed Last Taken Type Aspirin EC [Halfprin EC] 81 mg PO QDAY 09/20/19 11/02/21 Unknown History Benazepril HCl [Lotensin] 40 mg PO DAILY 09/20/19 11/02/21 Unknown History Cyanocobalamin (Vitamin B-12) 2,000 mcg PO DAILY 09/20/19 11/02/21 Unknown History [Vitamin B-12] Folic Acid/Multivit,Iron,[place] 1 each PO DAILY 09/20/19 11/02/21 Unknown History [One Daily Maximum Tablet] HYDROcodone/APAP 7.5-325 [[place] 7.5 mg PO PRN 09/20/19 11/02/21 Unknown History 7.5-325 mg TAB] [place]-3 Fatty Acids/Fish Oil [Fish 1,000 mg PO BID 09/20/19 11/02/21 Unknown History Oil] QUEtiapine [SEROquel] 25 mg PO QHS 09/20/19 11/02/21 Unknown History polyethylene glycoL 3350 [Miralax 17 gm PO BID 09/20/19 11/02/21 Unknown History 3350] DULoxetine [Cymbalta] 60 mg PO QDAY #30 capsule 09/27/19 11/02/21 Unknown Rx Doxepin [SINEquan] 25 mg PO QHS #30 capsule 09/27/19 11/02/21 Unknown Rx Active Meds: Active Medications Acetaminophen (Acetaminophen 325 Mg Tab) 650 mg PO Q6H PRN PRN Reason: Pain, Mild (1-3) Hydrocodone Bitart/Acetaminophen (Hydrocodone/Acetaminophen 7.5-325mg Tab) 1 each PO Q8HR PRN PRN Reason: Pain, Moderate (4-6) Aspirin (Aspirin Ec 81 Mg Tab) 81 mg PO QDAY AMINTA Last Admin: 11/07/21 08:14 Dose: 81 mg Cyanocobalamin (Cyanocobalamin (Vit B-12) 1000 Mcg Tab) 2,000 mcg PO QDAY [facility] Last Admin: 11/07/21 08:14 Dose: 2,000 mcg Doxepin HCl (Doxepin 25 Mg Cap) 25 mg PO QHS [facility] Last Admin: 11/06/21 21:11 Dose: 25 mg Duloxetine HCl (Duloxetine 30 Mg Cap) 60 mg PO QDAY [facility] Last Admin: 11/07/21 08:14 Dose: 60 mg Fish Oil ([place]-3 Fatty Acids/Fish Oil 1 Gram Cap) 1,000 mg PO BID [facility] Last Admin: 11/07/21 08:14 Dose: 1,000 mg Lisinopril (Lisinopril 40 Mg Tab) 40 mg PO QDAY [facility] Last Admin: 11/07/21 08:15 Dose: 40 mg Multivitamins/Minerals (Multivitamins,Ther W-Minerals Tab) 1 each PO QDAY [facility] Last Admin: 11/07/21 08:14 Dose: 1 each Polyethylene Glycol (Polyethylene Glycol 3350 17 Gm Powder) 17 gm PO BID [facility] Last Admin: 11/06/21 21:11 Dose: 17 gm Quetiapine Fumarate (Quetiapine 25 Mg Tab) 25 mg PO QHS [facility] Last Admin: 11/06/21 21:11 Dose: 25 mg Trazodone HCl (Trazodone 50 Mg Tab) 50 mg PO QHS [facility] Last Admin: 11/06/21 21:11 Dose: 50 mg Valproic Acid (Valproic Acid 250 Mg/5 Ml Oral Liqd) 125 mg PO DAILY [facility] Last Admin: 11/07/21 08:15 Dose: 125 mg Results - Results Labs/Vitals: Laboratory Last Values WBC 6.2 K/mm3 (4.5-11.0) 11/03/21 06:31 RBC 4.73 M/mm3 (3.65-5.03) 11/03/21 06:31 Hgb 15.4 gm/dl (11.8-15.2) H 11/03/21 06:31 Hct 46.3 % (35.5-45.6) H 11/03/21 06:31 MCV 98 fl (84-94) H 11/03/21 06:31 MCH 33 pg (28-32) H 11/03/21 06:31 MCHC 33 % (32-34) 11/03/21 06:31 RDW 13.4 % (13.2-15.2) 11/03/21 06:31 Plt Count 241 K/mm3 (140-440) 11/03/21 06:31 Lymph % (Auto) 25.9 % (13.4-35.0) 11/03/21 06:31 [place] % (Auto) 10.0 % (0.0-7.3) H 11/03/21 06:31 Eos % (Auto) 1.6 % (0.0-4.3) 11/03/21 06:31 Baso % (Auto) 0.9 % (0.0-1.8) 11/03/21 06:31 Lymph # (Auto) 1.6 K/mm3 (1.2-5.4) 11/03/21 06:31 [place] # (Auto) 0.6 K/mm3 (0.0-0.8) 11/03/21 06:31 Eos # (Auto) 0.1 K/mm3 (0.0-0.4) 11/03/21 06:31 Baso # (Auto) 0.1 K/mm3 (0.0-0.1) 11/03/21 06:31 Seg Neutrophils % 61.6 % (40.0-70.0) 11/03/21 06:31 Seg Neutrophils # 3.8 K/mm3 (1.8-7.7) 11/03/21 06:31 Sodium 142 mmol/L (137-145) 11/03/21 06:31 Potassium 4.0 mmol/L (3.6-5.0) 11/03/21 06:31 Chloride 108.0 mmol/L (98-107) H 11/03/21 06:31 Carbon Dioxide 24 mmol/L (22-30) 11/03/21 06:31 Anion Gap 14 mmol/L 11/03/21 06:31 BUN 19 mg/dL (9-20) 11/03/21 06:31 Creatinine 0.8 mg/dL (0.8-1.3) 11/03/21 06:31 Estimated GFR > 60 ml/min 11/03/21 06:31 BUN/Creatinine Ratio 24 % 11/03/21 06:31 Glucose 86 mg/dL (75-100) 11/03/21 06:31 Hemoglobin A1c 5.2 % (4-6) 11/03/21 06:31 Calcium 9.1 mg/dL (8.4-10.2) 11/03/21 06:31 Total Bilirubin 0.50 mg/dL (0.1-1.2) 11/03/21 06:31 AST 15 units/L (5-40) 11/03/21 06:31 ALT 14 units/L (7-56) 11/03/21 06:31 Alkaline Phosphatase 69 units/L (35-129) 11/03/21 06:31 Total Protein 6.2 g/dL (6.3-8.2) L 11/03/21 06:31 Albumin 3.9 g/dL (3.9-5) 11/03/21 06:31 Albumin/Globulin Ratio 1.7 % 11/03/21 06:31 Triglycerides 78 mg/dL (2-149) 11/03/21 06:31 Cholesterol 160 mg/dL (50-199) 11/03/21 06:31 LDL Cholesterol Direct 101 mg/dL (50-130) 11/03/21 06:31 HDL Cholesterol 50 mg/dL (40-59) 11/03/21 06:31 Cholesterol/HDL Ratio 3.20 % 11/03/21 06:31 TSH 1.250 mlU/mL (0.270-4.200) 11/03/21 06:31 Last Vital Signs Temp 98.3 F 11/06/21 22:19 Pulse 79 11/06/21 22:19 Resp 18 11/06/21 22:19 BP 193/90 11/06/21 22:19 Pulse Ox 99 11/06/21 20:26
--- NOTE | 2021-11-07 12:35 | Progress Note ---
Assessment and Plan - Patient Problems (1) Vascular dementia with behavioral disturbance Current Visit: Yes Status: Acute Plan to address problem: Verbal prompting, verbal redirection, benzodiazepine therapy as clinically indicated, supportive care. (2) Cerebral atherosclerosis Current Visit: Yes Status: Acute Plan to address problem: Risk factor reduction, antiplatelet therapy as clinically indicated, supportive care. (3) Major depression Current Visit: Yes Status: Acute Plan to address problem: Supportive care, continue medical management. (4) Coronary artery disease Current Visit: No Status: Chronic Qualifiers: Coronary Disease-Associated Artery/Lesion type: [place] artery [place] vs. transplanted heart: [place] heart Associated angina: without angina Qualified Code(s): I25.10 - Atherosclerotic heart disease of [place] coronary artery without angina pectoris Plan to address problem: Supportive care, continue medical management, risk factor reduction, antiplatelet therapy as clinically indicated. (5) GERD (gastroesophageal reflux disease) Current Visit: No Status: Chronic Qualifiers: Esophagitis presence: without esophagitis Qualified Code(s): K21.9 - Gastro-esophageal reflux disease without esophagitis Plan to address problem: PPI therapy, supportive care. (6) Hypertension Current Visit: No Status: Chronic Qualifiers: Hypertension type: primary hypertension Qualified Code(s): I10 - Essential (primary) hypertension Plan to address problem: Monitor blood pressure every shift, continue medical management (7) Advance care planning Current Visit: Yes Status: Acute Plan to address problem: Disease education conducted, care plan discussed, diagnoses discussed, prognosis discussed, patient is full code. Patient knowledges understanding and agreement with care plan, +30 minutes. History Interval history: 86 YO Male with Vascular Dementia with Behavioral Disturbance, Cerebral Athe rosclerosis, HTN, CAD S/P Stent placement, GERD, LDD, OA, Skin Cancer, MDD, admitted to [facility] for psychiatric stabilization. Consult placed by Dr. Reyes for medical management. The patient was seen and evaluated in the recreation room. Patient is at baseline level of cognition and function. Hospitalist Physical - Constitutional Vitals: Temp Pulse Resp BP Pulse Ox 98.4 F 74 18 125/60 100 11/07/21 09:21 11/07/21 09:21 11/07/21 09:21 11/07/21 09:21 11/07/21 09:21 General appearance: Present: no acute distress, well-nourished - EENT Eyes: Present: PERRL, EOM intact ENT: hearing intact, clear oral mucosa - Neck Neck: Present: supple - Respiratory Respiratory effort: normal Respiratory: bilateral: CTA - Cardiovascular Rhythm: regular Heart Sounds: Present: S1 & S2 - Extremities Extremities: no ischemia Peripheral Pulses: within normal limits - Abdominal General gastrointestinal: soft, non-tender, non-distended - Integumentary Integumentary: Present: clear, dry - Psychiatric Psychiatric: cooperative - Neurologic Neurologic: CNII-XII intact Results - Labs CBC & Chem 7: 11/03/21 06:31 11/03/21 06:31 Labs: Laboratory Last Values WBC 6.2 K/mm3 (4.5-11.0) 11/03/21 06:31 RBC 4.73 M/mm3 (3.65-5.03) 11/03/21 06:31 Hgb 15.4 gm/dl (11.8-15.2) H 11/03/21 06:31 Hct 46.3 % (35.5-45.6) H 11/03/21 06:31 MCV 98 fl (84-94) H 11/03/21 06:31 MCH 33 pg (28-32) H 11/03/21 06:31 MCHC 33 % (32-34) 11/03/21 06:31 RDW 13.4 % (13.2-15.2) 11/03/21 06:31 Plt Count 241 K/mm3 (140-440) 11/03/21 06:31 Lymph % (Auto) 25.9 % (13.4-35.0) 11/03/21 06:31 [place] % (Auto) 10.0 % (0.0-7.3) H 11/03/21 06:31 Eos % (Auto) 1.6 % (0.0-4.3) 11/03/21 06:31 Baso % (Auto) 0.9 % (0.0-1.8) 11/03/21 06:31 Lymph # (Auto) 1.6 K/mm3 (1.2-5.4) 11/03/21 06:31 [place] # (Auto) 0.6 K/mm3 (0.0-0.8) 11/03/21 06:31 Eos # (Auto) 0.1 K/mm3 (0.0-0.4) 11/03/21 06:31 Baso # (Auto) 0.1 K/mm3 (0.0-0.1) 11/03/21 06:31 Seg Neutrophils % 61.6 % (40.0-70.0) 11/03/21 06:31 Seg Neutrophils # 3.8 K/mm3 (1.8-7.7) 11/03/21 06:31 Sodium 142 mmol/L (137-145) 11/03/21 06:31 Potassium 4.0 mmol/L (3.6-5.0) 11/03/21 06:31 Chloride 108.0 mmol/L (98-107) H 11/03/21 06:31 Carbon Dioxide 24 mmol/L (22-30) 11/03/21 06:31 Anion Gap 14 mmol/L 11/03/21 06:31 BUN 19 mg/dL (9-20) 11/03/21 06:31 Creatinine 0.8 mg/dL (0.8-1.3) 11/03/21 06:31 Estimated GFR > 60 ml/min 11/03/21 06:31 BUN/Creatinine Ratio 24 % 11/03/21 06:31 Glucose 86 mg/dL (75-100) 11/03/21 06:31 Hemoglobin A1c 5.2 % (4-6) 11/03/21 06:31 Calcium 9.1 mg/dL (8.4-10.2) 11/03/21 06:31 Total Bilirubin 0.50 mg/dL (0.1-1.2) 11/03/21 06:31 AST 15 units/L (5-40) 11/03/21 06:31 ALT 14 units/L (7-56) 11/03/21 06:31 Alkaline Phosphatase 69 units/L (35-129) 11/03/21 06:31 Total Protein 6.2 g/dL (6.3-8.2) L 11/03/21 06:31 Albumin 3.9 g/dL (3.9-5) 11/03/21 06:31 Albumin/Globulin Ratio 1.7 % 11/03/21 06:31 Triglycerides 78 mg/dL (2-149) 11/03/21 06:31 Cholesterol 160 mg/dL (50-199) 11/03/21 06:31 LDL Cholesterol Direct 101 mg/dL (50-130) 11/03/21 06:31 HDL Cholesterol 50 mg/dL (40-59) 11/03/21 06:31 Cholesterol/HDL Ratio 3.20 % 11/03/21 06:31 TSH 1.250 mlU/mL (0.270-4.200) 11/03/21 06:31 Lilly/IV: Voiding Method Toilet Active Medications - Current Medications Current Medications: Generic Name Dose Route Start Last Admin Trade Name Freq PRN Reason Stop Dose Admin Acetaminophen 650 mg 11/06/21 09:11 Acetaminophen 325 Mg Tab PO Q6H PRN Pain, Mild (1-3) Hydrocodone Bitart/Acetaminophen 1 each 11/03/21 14:00 Hydrocodone/Acetaminophen 7.5-325mg Tab PO Q8HR PRN Pain, Moderate (4-6) Aspirin 81 mg 11/03/21 10:00 11/07/21 10:00 Aspirin Ec 81 Mg Tab PO Not Given QDAY [facility] Cyanocobalamin 2,000 mcg 11/04/21 10:00 11/07/21 10:00 Cyanocobalamin (Vit B-12) 1000 Mcg Tab PO Not Given QDAY [facility] Doxepin HCl 25 mg 11/03/21 22:00 11/06/21 21:11 Doxepin 25 Mg Cap PO 25 mg QHS AMINTA Administration Duloxetine HCl 60 mg 11/03/21 10:00 11/07/21 10:00 Duloxetine 30 Mg Cap PO Not Given QDAY [facility] Fish Oil 1,000 mg 11/03/21 10:00 11/07/21 10:00 [place]-3 Fatty Acids/Fish Oil 1 Gram Cap PO Not Given BID AMINTA Lisinopril 40 mg 11/03/21 10:00 11/07/21 10:00 Lisinopril 40 Mg Tab PO Not Given QDAY [facility] Multivitamins/Minerals 1 each 11/03/21 10:00 11/07/21 10:00 Multivitamins,Ther W-Minerals Tab PO Not Given QDAY [facility] Polyethylene Glycol 17 gm 11/03/21 10:00 11/06/21 21:11 Polyethylene Glycol 3350 17 Gm Powder PO 17 gm BID AMINTA Administration Quetiapine Fumarate 25 mg 11/03/21 22:00 11/06/21 21:11 Quetiapine 25 Mg Tab PO 25 mg QHS AMINTA Administration Trazodone HCl 50 mg 11/03/21 22:00 11/06/21 21:11 Trazodone 50 Mg Tab PO 50 mg QHS AMINTA Administration Valproic Acid 125 mg 11/04/21 10:00 11/07/21 10:00 Valproic Acid 250 Mg/5 Ml Oral Liqd PO Not Given DAILY AMINTA
--- NOTE | 2021-11-07 12:35 | Progress Note ---
Assessment and Plan - Patient Problems (1) Vascular dementia with behavioral disturbance Current Visit: Yes Status: Acute Plan to address problem: Verbal prompting, verbal redirection, benzodiazepine therapy as clinically indicated, supportive care. (2) Cerebral atherosclerosis Current Visit: Yes Status: Acute Plan to address problem: Risk factor reduction, antiplatelet therapy as clinically indicated, supportive care. (3) Major depression Current Visit: Yes Status: Acute Plan to address problem: Supportive care, continue medical management. (4) Coronary artery disease Current Visit: No Status: Chronic Qualifiers: Coronary Disease-Associated Artery/Lesion type: [place] artery [place] vs. transplanted heart: [place] heart Associated angina: without angina Qualified Code(s): I25.10 - Atherosclerotic heart disease of [place] coronary artery without angina pectoris Plan to address problem: Supportive care, continue medical management, risk factor reduction, antiplatelet therapy as clinically indicated. (5) GERD (gastroesophageal reflux disease) Current Visit: No Status: Chronic Qualifiers: Esophagitis presence: without esophagitis Qualified Code(s): K21.9 - Gastro-esophageal reflux disease without esophagitis Plan to address problem: PPI therapy, supportive care. (6) Hypertension Current Visit: No Status: Chronic Qualifiers: Hypertension type: primary hypertension Qualified Code(s): I10 - Essential (primary) hypertension Plan to address problem: Monitor blood pressure every shift, continue medical management (7) Advance care planning Current Visit: Yes Status: Acute Plan to address problem: Disease education conducted, care plan discussed, diagnoses discussed, prognosis discussed, patient is full code. Patient knowledges understanding and agreement with care plan, +30 minutes. History Interval history: 86 YO Male with Vascular Dementia with Behavioral Disturbance, Cerebral Athe rosclerosis, HTN, CAD S/P Stent placement, GERD, LDD, OA, Skin Cancer, MDD, admitted to [facility] for psychiatric stabilization. Consult placed by Dr. Reyes for medical management. The patient was seen and evaluated in the recreation room. Patient is at baseline level of cognition and function. Hospitalist Physical - Constitutional Vitals: Temp Pulse Resp BP Pulse Ox 98.4 F 74 18 125/60 100 11/07/21 09:21 11/07/21 09:21 11/07/21 09:21 11/07/21 09:21 11/07/21 09:21 General appearance: Present: no acute distress, well-nourished - EENT Eyes: Present: PERRL, EOM intact ENT: hearing decreased - Neck Neck: Present: supple - Respiratory Respiratory effort: normal Respiratory: bilateral: CTA - Cardiovascular Rhythm: regular Heart Sounds: Present: S1 & S2 - Extremities Extremities: no ischemia Peripheral Pulses: within normal limits - Abdominal General gastrointestinal: soft, non-tender, non-distended - Integumentary Integumentary: Present: clear, dry - Psychiatric Psychiatric: cooperative - Neurologic Neurologic: CNII-XII intact Results - Labs CBC & Chem 7: 11/03/21 06:31 11/03/21 06:31 Labs: Laboratory Last Values WBC 6.2 K/mm3 (4.5-11.0) 11/03/21 06:31 RBC 4.73 M/mm3 (3.65-5.03) 11/03/21 06:31 Hgb 15.4 gm/dl (11.8-15.2) H 11/03/21 06:31 Hct 46.3 % (35.5-45.6) H 11/03/21 06:31 MCV 98 fl (84-94) H 11/03/21 06:31 MCH 33 pg (28-32) H 11/03/21 06:31 MCHC 33 % (32-34) 11/03/21 06:31 RDW 13.4 % (13.2-15.2) 11/03/21 06:31 Plt Count 241 K/mm3 (140-440) 11/03/21 06:31 Lymph % (Auto) 25.9 % (13.4-35.0) 11/03/21 06:31 [place] % (Auto) 10.0 % (0.0-7.3) H 11/03/21 06:31 Eos % (Auto) 1.6 % (0.0-4.3) 11/03/21 06:31 Baso % (Auto) 0.9 % (0.0-1.8) 11/03/21 06:31 Lymph # (Auto) 1.6 K/mm3 (1.2-5.4) 11/03/21 06:31 [place] # (Auto) 0.6 K/mm3 (0.0-0.8) 11/03/21 06:31 Eos # (Auto) 0.1 K/mm3 (0.0-0.4) 11/03/21 06:31 Baso # (Auto) 0.1 K/mm3 (0.0-0.1) 11/03/21 06:31 Seg Neutrophils % 61.6 % (40.0-70.0) 11/03/21 06:31 Seg Neutrophils # 3.8 K/mm3 (1.8-7.7) 11/03/21 06:31 Sodium 142 mmol/L (137-145) 11/03/21 06:31 Potassium 4.0 mmol/L (3.6-5.0) 11/03/21 06:31 Chloride 108.0 mmol/L (98-107) H 11/03/21 06:31 Carbon Dioxide 24 mmol/L (22-30) 11/03/21 06:31 Anion Gap 14 mmol/L 11/03/21 06:31 BUN 19 mg/dL (9-20) 11/03/21 06:31 Creatinine 0.8 mg/dL (0.8-1.3) 11/03/21 06:31 Estimated GFR > 60 ml/min 11/03/21 06:31 BUN/Creatinine Ratio 24 % 11/03/21 06:31 Glucose 86 mg/dL (75-100) 11/03/21 06:31 Hemoglobin A1c 5.2 % (4-6) 11/03/21 06:31 Calcium 9.1 mg/dL (8.4-10.2) 11/03/21 06:31 Total Bilirubin 0.50 mg/dL (0.1-1.2) 11/03/21 06:31 AST 15 units/L (5-40) 11/03/21 06:31 ALT 14 units/L (7-56) 11/03/21 06:31 Alkaline Phosphatase 69 units/L (35-129) 11/03/21 06:31 Total Protein 6.2 g/dL (6.3-8.2) L 11/03/21 06:31 Albumin 3.9 g/dL (3.9-5) 11/03/21 06:31 Albumin/Globulin Ratio 1.7 % 11/03/21 06:31 Triglycerides 78 mg/dL (2-149) 11/03/21 06:31 Cholesterol 160 mg/dL (50-199) 11/03/21 06:31 LDL Cholesterol Direct 101 mg/dL (50-130) 11/03/21 06:31 HDL Cholesterol 50 mg/dL (40-59) 11/03/21 06:31 Cholesterol/HDL Ratio 3.20 % 11/03/21 06:31 TSH 1.250 mlU/mL (0.270-4.200) 11/03/21 06:31 Lilly/IV: Voiding Method Toilet Active Medications - Current Medications Current Medications: Generic Name Dose Route Start Last Admin Trade Name Freq PRN Reason Stop Dose Admin Acetaminophen 650 mg 11/06/21 09:11 Acetaminophen 325 Mg Tab PO Q6H PRN Pain, Mild (1-3) Hydrocodone Bitart/Acetaminophen 1 each 11/03/21 14:00 Hydrocodone/Acetaminophen 7.5-325mg Tab PO Q8HR PRN Pain, Moderate (4-6) Aspirin 81 mg 11/03/21 10:00 11/07/21 10:00 Aspirin Ec 81 Mg Tab PO Not Given QDAY [facility] Cyanocobalamin 2,000 mcg 11/04/21 10:00 11/07/21 10:00 Cyanocobalamin (Vit B-12) 1000 Mcg Tab PO Not Given QDAY [facility] Doxepin HCl 25 mg 11/03/21 22:00 11/06/21 21:11 Doxepin 25 Mg Cap PO 25 mg QHS AMINTA Administration Duloxetine HCl 60 mg 11/03/21 10:00 11/07/21 10:00 Duloxetine 30 Mg Cap PO Not Given QDAY [facility] Fish Oil 1,000 mg 11/03/21 10:00 11/07/21 10:00 [place]-3 Fatty Acids/Fish Oil 1 Gram Cap PO Not Given BID AMINTA Lisinopril 40 mg 11/03/21 10:00 11/07/21 10:00 Lisinopril 40 Mg Tab PO Not Given QDAY [facility] Multivitamins/Minerals 1 each 11/03/21 10:00 11/07/21 10:00 Multivitamins,Ther W-Minerals Tab PO Not Given QDAY [facility] Polyethylene Glycol 17 gm 11/03/21 10:00 11/06/21 21:11 Polyethylene Glycol 3350 17 Gm Powder PO 17 gm BID AMINTA Administration Quetiapine Fumarate 25 mg 11/03/21 22:00 11/06/21 21:11 Quetiapine 25 Mg Tab PO 25 mg QHS AMINTA Administration Trazodone HCl 50 mg 11/03/21 22:00 11/06/21 21:11 Trazodone 50 Mg Tab PO 50 mg QHS AMINTA Administration Valproic Acid 125 mg 11/04/21 10:00 11/07/21 10:00 Valproic Acid 250 Mg/5 Ml Oral Liqd PO Not Given DAILY AMINTA
[2021-11-07] MEDS: traZODone 50 MG TAB PO SCH (21:37)
[2021-11-07] MEDS: DOXEPIN 25 MG CAP PO SCH (21:37)
[2021-11-07] MEDS: QUEtiapine 25 MG TAB PO SCH (21:37)
--- NOTE | 2021-11-08 08:35 | Progress Note ---
Subjective Date of service: 11/08/21 Principal diagnosis: Dementia with Behavioral Disturbance Subjective Comment: 11/08/21: The patient was seen this morning. He is calm and reports doing well. The patient continues to be confused. He denies any current suicidal/homicidal ideation and denies hallucinations. Spoke with patient's daughter Mary @ [phone] and updated her on the current treatment plan; she states that the patient can not return to their home. 11/07/21: The patient was seen at breakfast this morning. He is alert and oriented x2; the patient is [place]. The patient is confused " I have been asking for someone to call the police; I have a home and my and her children are trying to take over." He denies any current suicidal/homicidal ideation. No aggressive behavior noted. 11/06/21: The patient was seen this morning. The patient continues to be confused. He reports sleep and appetite as good. He denies any current suicidal/homicidal ideation and denies hallucinations. 11/05/21:The patient was seen today. The patient stays he is doing well; patient is confused stating " This is going to be an extremely difficult day for me, I'm going home and no one to pick me up." He denies any current suicidal/homicidal ideation and denies hallucinations. 11/04:The patient was seen today. He is lying in bed awake. He is calm and cooperative. He is pleasant. The patient is [place]. He is confused and has poor insight. He says he slept good. He says "I was asleep." He repeated this twice. I ask the patient how did he feel, he says "fine, except I was asleep." He denies SI/HI. The patient has been noted to have periods of agitation, and reported delusions from staff and family. REVIEW OF SYSTEMS Unable to assess MENTAL STATUS EXAMINATION Unable to assess Assessment and Plan Dementia with Behavioral Disturbance Treatment Plan Patient admitted for inpatient psychiatric evaluation, medication adjustment and close monitoring The patient's behavior, mood, sleep and appetite will be closely monitored. Patient enrolled in individual and group therapeutic sessions and encouraged to attend. Patient provided with a safe and structured environment. Patient's physical health needs will be addressed by the Hospitalist. Hospitalist Consulted Labs including CBC, CMP, Lipid profile and Hemoglobin A1C levels ordered for baseline reference Social Assessment will be completed and the Mortgage Analyst will work with patient and family to ensure a suitable and safe disposition Medication adjustment will be made as clinically indicated Start Valproic acid 125mg po daily Usual Wellness Orthodox/Preservation: - Start Trazodone 50 mg po QHS & 50 mg po QHS PRN between 10 PM & 2 AM for insomnia - Start Melatonin 5 mg po QHS to promote circadian rhythm The patient agreed on the treatment plan, understood the risk, benefit, alternative treatment, potential consequence of no treatment, and gave informed consent. Estimated days: Post hospital care: primary care provider, psychiatric provider Case staffed with Dr. Dukes Medications and Allergies Medications and Allergies Allergies Allergy/AdvReac Type Severity Reaction Status Date / Time cyclobenzaprine AdvReac HALLUCINATI Verified 09/20/19 12:06 [From Flexeril] ONS diazepam AdvReac SEVERE Verified 09/20/19 12:05 HALLUCINATION Home Medications Medication Instructions Recorded Confirmed Last Taken Type Aspirin EC [Halfprin EC] 81 mg PO QDAY 09/20/19 11/02/21 Unknown History Benazepril HCl [Lotensin] 40 mg PO DAILY 09/20/19 11/02/21 Unknown History Cyanocobalamin (Vitamin B-12) 2,000 mcg PO DAILY 09/20/19 11/02/21 Unknown History [Vitamin B-12] Folic Acid/Multivit,Iron,Glycerin Supervisor 1 each PO DAILY 09/20/19 11/02/21 Unknown History [One Daily Maximum Tablet] HYDROcodone/APAP 7.5-325 [[place] 7.5 mg PO PRN 09/20/19 11/02/21 Unknown History 7.5-325 mg TAB] [place]-3 Fatty Acids/Fish Oil [Fish 1,000 mg PO BID 09/20/19 11/02/21 Unknown History Oil] QUEtiapine [SEROquel] 25 mg PO QHS 09/20/19 11/02/21 Unknown History polyethylene glycoL 3350 [Miralax 17 gm PO BID 09/20/19 11/02/21 Unknown History 3350] DULoxetine [Cymbalta] 60 mg PO QDAY #30 capsule 09/27/19 11/02/21 Unknown Rx Doxepin [SINEquan] 25 mg PO QHS #30 capsule 09/27/19 11/02/21 Unknown Rx Active Meds: Active Medications Acetaminophen (Acetaminophen 325 Mg Tab) 650 mg PO Q6H PRN PRN Reason: Pain, Mild (1-3) Hydrocodone Bitart/Acetaminophen (Hydrocodone/Acetaminophen 7.5-325mg Tab) 1 each PO Q8HR PRN PRN Reason: Pain, Moderate (4-6) Aspirin (Aspirin Ec 81 Mg Tab) 81 mg PO QDAY [facility] Last Admin: 11/07/21 10:00 Dose: Not Given Cyanocobalamin (Cyanocobalamin (Vit B-12) 1000 Mcg Tab) 2,000 mcg PO QDAY [facility] Last Admin: 11/07/21 10:00 Dose: Not Given Doxepin HCl (Doxepin 25 Mg Cap) 25 mg PO QHS [facility] Last Admin: 11/07/21 21:37 Dose: 25 mg Duloxetine HCl (Duloxetine 30 Mg Cap) 60 mg PO QDAY [facility] Last Admin: 11/07/21 10:00 Dose: Not Given Fish Oil ([place]-3 Fatty Acids/Fish Oil 1 Gram Cap) 1,000 mg PO BID [facility] Last Admin: 11/07/21 21:37 Dose: 1,000 mg Lisinopril (Lisinopril 40 Mg Tab) 40 mg PO QDAY [facility] Last Admin: 11/07/21 10:00 Dose: Not Given Multivitamins/Minerals (Multivitamins,Ther W-Minerals Tab) 1 each PO QDAY [facility] Last Admin: 11/07/21 10:00 Dose: Not Given Polyethylene Glycol (Polyethylene Glycol 3350 17 Gm Powder) 17 gm PO BID [facility] Last Admin: 11/07/21 21:37 Dose: 17 gm Quetiapine Fumarate (Quetiapine 25 Mg Tab) 25 mg PO QHS [facility] Last Admin: 11/07/21 21:37 Dose: 25 mg Trazodone HCl (Trazodone 50 Mg Tab) 50 mg PO QHS [facility] Last Admin: 11/07/21 21:37 Dose: 50 mg Valproic Acid (Valproic Acid 250 Mg/5 Ml Oral Liqd) 125 mg PO DAILY [facility] Last Admin: 11/07/21 10:00 Dose: Not Given Results - Results Labs/Vitals: Laboratory Last Values WBC 6.2 K/mm3 (4.5-11.0) 11/03/21 06:31 RBC 4.73 M/mm3 (3.65-5.03) 11/03/21 06:31 Hgb 15.4 gm/dl (11.8-15.2) H 11/03/21 06:31 Hct 46.3 % (35.5-45.6) H 11/03/21 06:31 MCV 98 fl (84-94) H 11/03/21 06:31 MCH 33 pg (28-32) H 11/03/21 06:31 MCHC 33 % (32-34) 11/03/21 06:31 RDW 13.4 % (13.2-15.2) 11/03/21 06:31 Plt Count 241 K/mm3 (140-440) 11/03/21 06:31 Lymph % (Auto) 25.9 % (13.4-35.0) 11/03/21 06:31 [place] % (Auto) 10.0 % (0.0-7.3) H 11/03/21 06:31 Eos % (Auto) 1.6 % (0.0-4.3) 11/03/21 06:31 Baso % (Auto) 0.9 % (0.0-1.8) 11/03/21 06:31 Lymph # (Auto) 1.6 K/mm3 (1.2-5.4) 11/03/21 06:31 [place] # (Auto) 0.6 K/mm3 (0.0-0.8) 11/03/21 06:31 Eos # (Auto) 0.1 K/mm3 (0.0-0.4) 11/03/21 06:31 Baso # (Auto) 0.1 K/mm3 (0.0-0.1) 11/03/21 06:31 Seg Neutrophils % 61.6 % (40.0-70.0) 11/03/21 06:31 Seg Neutrophils # 3.8 K/mm3 (1.8-7.7) 11/03/21 06:31 Sodium 142 mmol/L (137-145) 11/03/21 06:31 Potassium 4.0 mmol/L (3.6-5.0) 11/03/21 06:31 Chloride 108.0 mmol/L (98-107) H 11/03/21 06:31 Carbon Dioxide 24 mmol/L (22-30) 11/03/21 06:31 Anion Gap 14 mmol/L 11/03/21 06:31 BUN 19 mg/dL (9-20) 11/03/21 06:31 Creatinine 0.8 mg/dL (0.8-1.3) 11/03/21 06:31 Estimated GFR > 60 ml/min 11/03/21 06:31 BUN/Creatinine Ratio 24 % 11/03/21 06:31 Glucose 86 mg/dL (75-100) 11/03/21 06:31 Hemoglobin A1c 5.2 % (4-6) 11/03/21 06:31 Calcium 9.1 mg/dL (8.4-10.2) 11/03/21 06:31 Total Bilirubin 0.50 mg/dL (0.1-1.2) 11/03/21 06:31 AST 15 units/L (5-40) 11/03/21 06:31 ALT 14 units/L (7-56) 11/03/21 06:31 Alkaline Phosphatase 69 units/L (35-129) 11/03/21 06:31 Total Protein 6.2 g/dL (6.3-8.2) L 11/03/21 06:31 Albumin 3.9 g/dL (3.9-5) 11/03/21 06:31 Albumin/Globulin Ratio 1.7 % 11/03/21 06:31 Triglycerides 78 mg/dL (2-149) 11/03/21 06:31 Cholesterol 160 mg/dL (50-199) 11/03/21 06:31 LDL Cholesterol Direct 101 mg/dL (50-130) 11/03/21 06:31 HDL Cholesterol 50 mg/dL (40-59) 11/03/21 06:31 Cholesterol/HDL Ratio 3.20 % 11/03/21 06:31 TSH 1.250 mlU/mL (0.270-4.200) 11/03/21 06:31 Last Vital Signs Temp 97.5 F L 11/07/21 19:41 Pulse 97 H 11/07/21 19:41 Resp 20 11/07/21 19:41 BP 117/75 11/07/21 19:41 Pulse Ox 99 11/07/21 19:41
[2021-11-08] MEDS: OMEGA-3 FATTY ACIDS/FISH OIL 1 GRAM CAP PO SCH ×2 (10:18→21:10)
[2021-11-08] MEDS: MULTIVITAMINS,THER W-MINERALS TAB PO SCH (10:18)
[2021-11-08] MEDS: ASPIRIN EC 81 MG TAB PO SCH (10:19)
[2021-11-08] MEDS: DULoxetine 30 MG CAP PO SCH (10:19)
[2021-11-08] MEDS: CYANOCOBALAMIN (VIT B-12) 1000 MCG TAB PO SCH (10:19)
[2021-11-08] MEDS: VALPROIC ACID 250 MG/5 ML ORAL LIQD PO SCH (10:20)
[2021-11-08] MEDS: LISINOPRIL 40 MG TAB PO SCH (10:20)
[2021-11-08] MEDS: POLYETHYLENE GLYCOL 3350 17 GM POWDER PO SCH ×2 (10:31→21:10)
--- NOTE | 2021-11-08 15:37 | Progress Note ---
Assessment and Plan 86 YO Male with Vascular Dementia with Behavioral Disturbance, Cerebral Atherosclerosis, HTN, CAD S/P Stent placement, GERD, LDD, OA, Skin Cancer, MDD, admitted to [facility] unit for psychiatric stabilization. Consult placed by Dr. Reyes for medical management. (1) Vascular dementia with behavioral disturbance Current Visit: Yes Status: Acute Plan to address problem: Verbal prompting, verbal redirection, benzodiazepine therapy as clinically indicated, supportive care. (2) Cerebral atherosclerosis Current Visit: Yes Status: Acute Plan to address problem: Risk factor reduction, antiplatelet therapy as clinically indicated, supportive care. (3) Major depression Current Visit: Yes Status: Acute Plan to address problem: Supportive care, continue medical management. (4) Coronary artery disease Current Visit: No Status: Chronic Qualifiers: Coronary Disease-Associated Artery/Lesion type: [place] artery [place] vs. transplanted heart: [place] heart Associated angina: without angina Qualified Code(s): I25.10 - Atherosclerotic heart disease of [place] coronary artery without angina pectoris Plan to address problem: Supportive care, continue medical management, risk factor reduction, antiplatelet therapy as clinically indicated. (5) GERD (gastroesophageal reflux disease) Current Visit: No Status: Chronic Qualifiers: Esophagitis presence: without esophagitis Qualified Code(s): K21.9 - Gastro-esophageal reflux disease without esophagitis Plan to address problem: PPI therapy, supportive care. (6) Hypertension Current Visit: No Status: Chronic Qualifiers: Hypertension type: primary hypertension Qualified Code(s): I10 - Essential (primary) hypertension Plan to address problem: Monitor blood pressure every shift, continue medical management (7) Advance care planning Current Visit: Yes Status: Acute Plan to address problem: Disease education conducted, care plan discussed, diagnoses discussed, prognosis discussed, patient is full code. Patient knowledges understanding and agreement with care plan, +30 minutes. Subjective Date of service: 11/08/21 Principal diagnosis: Dementia with Behavioral Disturbance Interval history: The patient was seen and evaluated in the recreation room. Patient is at baseline level of cognition and function. Objective - Exam Narrative Exam: General appearance: Present: no acute distress, well-nourished - EENT Eyes: Present: PERRL, EOM intact ENT: hearing decreased - Neck Neck: Present: supple - Respiratory Respiratory effort: normal Respiratory: bilateral: CTA - Cardiovascular Rhythm: regular Heart Sounds: Present: S1 & S2 - Extremities Extremities: no ischemia Peripheral Pulses: within normal limits - Abdominal General gastrointestinal: soft, non-tender, non-distended - Integumentary Integumentary: Present: clear, dry - Psychiatric Psychiatric: cooperative - Neurologic Neurologic: CNII-XII intact - Constitutional Vitals: Vital Signs - 12hr 11/08/21 11/08/21 09:56 10:20 Temperature 98.8 F Pulse Rate 64 64 Respiratory 18 Rate Blood Pressure 127/60 127/60 O2 Sat by Pulse 99 Oximetry - Labs CBC & Chem 7: 11/03/21 06:31 11/03/21 06:31
[2021-11-08] MEDS: DOXEPIN 25 MG CAP PO SCH (21:10)
[2021-11-08] MEDS: traZODone 50 MG TAB PO SCH (21:10)
[2021-11-08] MEDS: QUEtiapine 25 MG TAB PO SCH (21:10)
--- NOTE | 2021-11-09 09:27 | Progress Note ---
Subjective Date of service: 11/09/21 Principal diagnosis: Dementia with Behavioral Disturbance Subjective Comment: 11/09/21: The patient was seen at breakfast. The patient continues to be confused, talking about his daughters and the police. He denies any current suicidal/homicidal ideation and denies hallucinations. 11/08/21: The patient was seen this morning. He is calm and reports doing well. The patient continues to be confused. He denies any current suicidal/homicidal ideation and denies hallucinations. Spoke with patient's daughter Mary @ [phone] and updated her on the current treatment plan; she states that the patient can not return to their home. 11/07/21: The patient was seen at breakfast this morning. He is alert and oriented x2; the patient is [facility]. The patient is confused " I have been asking for someone to call the police; I have a home and my and her children are trying to take over." He denies any current suicidal/homicidal ideation. No aggressive behavior noted. 11/06/21: The patient was seen this morning. The patient continues to be confused. He reports sleep and appetite as good. He denies any current suicidal/homicidal ideation and denies hallucinations. 11/05/21:The patient was seen today. The patient stays he is doing well; patient is confused stating " This is going to be an extremely difficult day for me, I'm going home and no one to pick me up." He denies any current suicidal/homicidal ideation and denies hallucinations. 11/04:The patient was seen today. He is lying in bed awake. He is calm and cooperative. He is pleasant. The patient is [facility]. He is confused and has poor insight. He says he slept good. He says "I was asleep." He repeated this twice. I ask the patient how did he feel, he says "fine, except I was asleep." He denies SI/HI. The patient has been noted to have periods of agitation, and reported delusions from staff and family. REVIEW OF SYSTEMS Unable to assess MENTAL STATUS EXAMINATION Unable to assess Assessment and Plan Dementia with Behavioral Disturbance Treatment Plan Patient admitted for inpatient psychiatric evaluation, medication adjustment and close monitoring The patient's behavior, mood, sleep and appetite will be closely monitored. Patient enrolled in individual and group therapeutic sessions and encouraged to attend. Patient provided with a safe and structured environment. Patient's physical health needs will be addressed by the Hospitalist. Hospitalist Consulted Labs including CBC, CMP, Lipid profile and Hemoglobin A1C levels ordered for baseline reference Social Assessment will be completed and the Board Of [employer] Secretary will work with shayne lópez and family to ensure a suitable and safe disposition Medication adjustment will be made as clinically indicated Start Valproic acid 125mg po daily Usual Wellness Catholic/Preservation: - Start Trazodone 50 mg po QHS & 50 mg po QHS PRN between 10 PM & 2 AM for insomnia - Start Melatonin 5 mg po QHS to promote circadian rhythm The patient agreed on the treatment plan, understood the risk, benefit, alternative treatment, potential consequence of no treatment, and gave informed consent. Estimated days: Post hospital care: primary care provider, psychiatric provider Case staffed with Dr. Dukes Medications and Allergies Medications and Allergies Allergies Allergy/AdvReac Type Severity Reaction Status Date / Time cyclobenzaprine AdvReac HALLUCINATI Verified 09/20/19 12:06 [From Flexeril] ONS diazepam AdvReac SEVERE Verified 09/20/19 12:05 HALLUCINATION Home Medications Medication Instructions Recorded Confirmed Last Taken Type Aspirin EC [Halfprin EC] 81 mg PO QDAY 09/20/19 11/02/21 Unknown History Benazepril HCl [Lotensin] 40 mg PO DAILY 09/20/19 11/02/21 Unknown History Cyanocobalamin (Vitamin B-12) 2,000 mcg PO DAILY 09/20/19 11/02/21 Unknown History [Vitamin B-12] Folic Acid/Multivit,Iron,Gluing Machine Adjuster 1 each PO DAILY 09/20/19 11/02/21 Unknown History [One Daily Maximum Tablet] HYDROcodone/APAP 7.5-325 [[place] 7.5 mg PO PRN 09/20/19 11/02/21 Unknown History 7.5-325 mg TAB] [place]-3 Fatty Acids/Fish Oil [Fish 1,000 mg PO BID 09/20/19 11/02/21 Unknown History Oil] QUEtiapine [SEROquel] 25 mg PO QHS 09/20/19 11/02/21 Unknown History polyethylene glycoL 3350 [Miralax 17 gm PO BID 09/20/19 11/02/21 Unknown History 3350] DULoxetine [Cymbalta] 60 mg PO QDAY #30 capsule 09/27/19 11/02/21 Unknown Rx Doxepin [SINEquan] 25 mg PO QHS #30 capsule 09/27/19 11/02/21 Unknown Rx Active Meds: Active Medications Acetaminophen (Acetaminophen 325 Mg Tab) 650 mg PO Q6H PRN PRN Reason: Pain, Mild (1-3) Hydrocodone Bitart/Acetaminophen (Hydrocodone/Acetaminophen 7.5-325mg Tab) 1 each PO Q8HR PRN PRN Reason: Pain, Moderate (4-6) Aspirin (Aspirin Ec 81 Mg Tab) 81 mg PO QDAY [facility] Last Admin: 11/08/21 10:19 Dose: 81 mg Cyanocobalamin (Cyanocobalamin (Vit B-12) 1000 Mcg Tab) 2,000 mcg PO QDAY [facility] Last Admin: 11/08/21 10:19 Dose: 2,000 mcg Doxepin HCl (Doxepin 25 Mg Cap) 25 mg PO QHS [facility] Last Admin: 11/08/21 21:10 Dose: 25 mg Duloxetine HCl (Duloxetine 30 Mg Cap) 60 mg PO QDAY [facility] Last Admin: 11/08/21 10:19 Dose: 60 mg Fish Oil ([place]-3 Fatty Acids/Fish Oil 1 Gram Cap) 1,000 mg PO BID [facility] Last Admin: 11/08/21 21:10 Dose: 1,000 mg Lisinopril (Lisinopril 40 Mg Tab) 40 mg PO QDAY [facility] Last Admin: 11/08/21 10:20 Dose: 40 mg Multivitamins/Minerals (Multivitamins,Ther W-Minerals Tab) 1 each PO QDAY [facility] Last Admin: 11/08/21 10:18 Dose: 1 each Polyethylene Glycol (Polyethylene Glycol 3350 17 Gm Powder) 17 gm PO BID [facility] Last Admin: 11/08/21 21:10 Dose: 17 gm Quetiapine Fumarate (Quetiapine 25 Mg Tab) 25 mg PO QHS [facility] Last Admin: 11/08/21 21:10 Dose: 25 mg Trazodone HCl (Trazodone 50 Mg Tab) 50 mg PO QHS [facility] Last Admin: 11/08/21 21:10 Dose: 50 mg Valproic Acid (Valproic Acid 250 Mg/5 Ml Oral Liqd) 125 mg PO DAILY [facility] Last Admin: 11/08/21 10:20 Dose: 125 mg Results - Results Labs/Vitals: Laboratory Last Values WBC 6.2 K/mm3 (4.5-11.0) 11/03/21 06:31 RBC 4.73 M/mm3 (3.65-5.03) 11/03/21 06:31 Hgb 15.4 gm/dl (11.8-15.2) H 11/03/21 06:31 Hct 46.3 % (35.5-45.6) H 11/03/21 06:31 MCV 98 fl (84-94) H 11/03/21 06:31 MCH 33 pg (28-32) H 11/03/21 06:31 MCHC 33 % (32-34) 11/03/21 06:31 RDW 13.4 % (13.2-15.2) 11/03/21 06:31 Plt Count 241 K/mm3 (140-440) 11/03/21 06:31 Lymph % (Auto) 25.9 % (13.4-35.0) 11/03/21 06:31 [place] % (Auto) 10.0 % (0.0-7.3) H 11/03/21 06:31 Eos % (Auto) 1.6 % (0.0-4.3) 11/03/21 06:31 Baso % (Auto) 0.9 % (0.0-1.8) 11/03/21 06:31 Lymph # (Auto) 1.6 K/mm3 (1.2-5.4) 11/03/21 06:31 [place] # (Auto) 0.6 K/mm3 (0.0-0.8) 11/03/21 06:31 Eos # (Auto) 0.1 K/mm3 (0.0-0.4) 11/03/21 06:31 Baso # (Auto) 0.1 K/mm3 (0.0-0.1) 11/03/21 06:31 Seg Neutrophils % 61.6 % (40.0-70.0) 11/03/21 06:31 Seg Neutrophils # 3.8 K/mm3 (1.8-7.7) 11/03/21 06:31 Sodium 142 mmol/L (137-145) 11/03/21 06:31 Potassium 4.0 mmol/L (3.6-5.0) 11/03/21 06:31 Chloride 108.0 mmol/L (98-107) H 11/03/21 06:31 Carbon Dioxide 24 mmol/L (22-30) 11/03/21 06:31 Anion Gap 14 mmol/L 11/03/21 06:31 BUN 19 mg/dL (9-20) 11/03/21 06:31 Creatinine 0.8 mg/dL (0.8-1.3) 11/03/21 06:31 Estimated GFR > 60 ml/min 11/03/21 06:31 BUN/Creatinine Ratio 24 % 11/03/21 06:31 Glucose 86 mg/dL (75-100) 11/03/21 06:31 Hemoglobin A1c 5.2 % (4-6) 11/03/21 06:31 Calcium 9.1 mg/dL (8.4-10.2) 11/03/21 06:31 Total Bilirubin 0.50 mg/dL (0.1-1.2) 11/03/21 06:31 AST 15 units/L (5-40) 11/03/21 06:31 ALT 14 units/L (7-56) 11/03/21 06:31 Alkaline Phosphatase 69 units/L (35-129) 11/03/21 06:31 Total Protein 6.2 g/dL (6.3-8.2) L 11/03/21 06:31 Albumin 3.9 g/dL (3.9-5) 11/03/21 06:31 Albumin/Globulin Ratio 1.7 % 11/03/21 06:31 Triglycerides 78 mg/dL (2-149) 11/03/21 06:31 Cholesterol 160 mg/dL (50-199) 11/03/21 06:31 LDL Cholesterol Direct 101 mg/dL (50-130) 11/03/21 06:31 HDL Cholesterol 50 mg/dL (40-59) 11/03/21 06:31 Cholesterol/HDL Ratio 3.20 % 11/03/21 06:31 TSH 1.250 mlU/mL (0.270-4.200) 11/03/21 06:31 Last Vital Signs Temp 99.4 F 11/08/21 22:00 Pulse 81 11/08/21 22:00 Resp 18 11/08/21 22:00 BP 141/64 11/08/21 22:00 Pulse Ox 98 11/08/21 22:00
[2021-11-09] MEDS: DULoxetine 30 MG CAP PO SCH (10:27)
[2021-11-09] MEDS: ASPIRIN EC 81 MG TAB PO SCH (10:27)
[2021-11-09] MEDS: MULTIVITAMINS,THER W-MINERALS TAB PO SCH (10:28)
[2021-11-09] MEDS: CYANOCOBALAMIN (VIT B-12) 1000 MCG TAB PO SCH (10:28)
[2021-11-09] MEDS: OMEGA-3 FATTY ACIDS/FISH OIL 1 GRAM CAP PO SCH ×2 (10:28→21:09)
[2021-11-09] MEDS: VALPROIC ACID 250 MG/5 ML ORAL LIQD PO SCH (10:28)
[2021-11-09] MEDS: LISINOPRIL 40 MG TAB PO SCH (10:29)
[2021-11-09] MEDS: POLYETHYLENE GLYCOL 3350 17 GM POWDER PO SCH ×2 (10:30→21:09)
--- NOTE | 2021-11-09 15:53 | Progress Note ---
Assessment and Plan Assessment and plan: 86 YO Male with Vascular Dementia with Behavioral Disturbance, Cerebral Atherosclerosis, HTN, CAD S/P Stent placement, GERD, LDD, OA, Skin Cancer, MDD, admitted to [facility] psych unit for psychiatric stabilization. Consult placed by Dr. Reyes for medical management. #Vascular dementia with behavioral disturbance Verbal prompting, verbal redirection, benzodiazepine therapy as clinically indicated, supportive care. #Cerebral atherosclerosis Risk factor reduction, antiplatelet therapy as clinically indicated, supportive care. #Major depression Supportive care, continue medical management. #Coronary artery disease Supportive care, continue medical management, risk factor reduction, antiplatel et therapy as clinically indicated. #GERD (gastroesophageal reflux disease) PPI therapy, supportive care. #Hypertension Monitor blood pressure every shift, continue medical management #Advanced care planning -Disease education conducted, care plan discussed, diagnoses discussed, prognosis discussed, and patient acknowledges understanding with care plan -Time: +30 min Disposition Plan: Continue medical management Total Time Spent with Patient (Minutes): 30 minutes History Interval history: No acute events over night. Hospitalist Physical - Constitutional Vitals: Temp Pulse Resp BP Pulse Ox 98.2 F 77 18 122/65 97 11/09/21 09:13 11/09/21 09:16 11/09/21 09:13 11/09/21 09:13 11/09/21 09:16 General appearance: Present: no acute distress, well-nourished - EENT Eyes: Present: PERRL, EOM intact ENT: hearing intact, clear oral mucosa, dentition normal - Neck Neck: Present: supple, normal ROM - Respiratory Respiratory effort: normal Respiratory: bilateral: CTA - Cardiovascular Rhythm: regular Heart Sounds: Present: S1 & S2 - Extremities Extremities: no ischemia, pulses intact, pulses symmetrical, No edema, normal temperature, normal color, Full ROM Peripheral Pulses: within normal limits - Abdominal General gastrointestinal: soft, non-tender, non-distended, normal bowel sounds - Integumentary Integumentary: Present: clear, warm, dry - Psychiatric Psychiatric: cooperative - Neurologic Neurologic: CNII-XII intact Results - Labs CBC & Chem 7: 11/03/21 06:31 11/03/21 06:31 Labs: Laboratory Last Values WBC 6.2 K/mm3 (4.5-11.0) 11/03/21 06:31 RBC 4.73 M/mm3 (3.65-5.03) 11/03/21 06:31 Hgb 15.4 gm/dl (11.8-15.2) H 11/03/21 06:31 Hct 46.3 % (35.5-45.6) H 11/03/21 06:31 MCV 98 fl (84-94) H 11/03/21 06:31 MCH 33 pg (28-32) H 11/03/21 06:31 MCHC 33 % (32-34) 11/03/21 06:31 RDW 13.4 % (13.2-15.2) 11/03/21 06:31 Plt Count 241 K/mm3 (140-440) 11/03/21 06:31 Lymph % (Auto) 25.9 % (13.4-35.0) 11/03/21 06:31 [place] % (Auto) 10.0 % (0.0-7.3) H 11/03/21 06:31 Eos % (Auto) 1.6 % (0.0-4.3) 11/03/21 06:31 Baso % (Auto) 0.9 % (0.0-1.8) 11/03/21 06:31 Lymph # (Auto) 1.6 K/mm3 (1.2-5.4) 11/03/21 06:31 [place] # (Auto) 0.6 K/mm3 (0.0-0.8) 11/03/21 06:31 Eos # (Auto) 0.1 K/mm3 (0.0-0.4) 11/03/21 06:31 Baso # (Auto) 0.1 K/mm3 (0.0-0.1) 11/03/21 06:31 Seg Neutrophils % 61.6 % (40.0-70.0) 11/03/21 06:31 Seg Neutrophils # 3.8 K/mm3 (1.8-7.7) 11/03/21 06:31 Sodium 142 mmol/L (137-145) 11/03/21 06:31 Potassium 4.0 mmol/L (3.6-5.0) 11/03/21 06:31 Chloride 108.0 mmol/L (98-107) H 11/03/21 06:31 Carbon Dioxide 24 mmol/L (22-30) 11/03/21 06:31 Anion Gap 14 mmol/L 11/03/21 06:31 BUN 19 mg/dL (9-20) 11/03/21 06:31 Creatinine 0.8 mg/dL (0.8-1.3) 11/03/21 06:31 Estimated GFR > 60 ml/min 11/03/21 06:31 BUN/Creatinine Ratio 24 % 11/03/21 06:31 Glucose 86 mg/dL (75-100) 11/03/21 06:31 Hemoglobin A1c 5.2 % (4-6) 11/03/21 06:31 Calcium 9.1 mg/dL (8.4-10.2) 11/03/21 06:31 Total Bilirubin 0.50 mg/dL (0.1-1.2) 11/03/21 06:31 AST 15 units/L (5-40) 11/03/21 06:31 ALT 14 units/L (7-56) 11/03/21 06:31 Alkaline Phosphatase 69 units/L (35-129) 11/03/21 06:31 Total Protein 6.2 g/dL (6.3-8.2) L 11/03/21 06:31 Albumin 3.9 g/dL (3.9-5) 11/03/21 06:31 Albumin/Globulin Ratio 1.7 % 11/03/21 06:31 Triglycerides 78 mg/dL (2-149) 11/03/21 06:31 Cholesterol 160 mg/dL (50-199) 11/03/21 06:31 LDL Cholesterol Direct 101 mg/dL (50-130) 11/03/21 06:31 HDL Cholesterol 50 mg/dL (40-59) 11/03/21 06:31 Cholesterol/HDL Ratio 3.20 % 11/03/21 06:31 TSH 1.250 mlU/mL (0.270-4.200) 11/03/21 06:31 Lilly/IV: Voiding Method Toilet Active Medications - Current Medications Current Medications: Generic Name Dose Route Start Last Admin Trade Name Freq PRN Reason Stop Dose Admin Acetaminophen 650 mg 11/06/21 09:11 Acetaminophen 325 Mg Tab PO Q6H PRN Pain, Mild (1-3) Hydrocodone Bitart/Acetaminophen 1 each 11/03/21 14:00 Hydrocodone/Acetaminophen 7.5-325mg Tab PO Q8HR PRN Pain, Moderate (4-6) Aspirin 81 mg 11/03/21 10:00 11/09/21 10:27 Aspirin Ec 81 Mg Tab PO 81 mg QDAY AMINTA Administration Cyanocobalamin 2,000 mcg 11/04/21 10:00 11/09/21 10:28 Cyanocobalamin (Vit B-12) 1000 Mcg Tab PO 2,000 mcg QDAY AMINTA Administration Doxepin HCl 25 mg 11/03/21 22:00 11/08/21 21:10 Doxepin 25 Mg Cap PO 25 mg QHS AMINTA Administration Duloxetine HCl 60 mg 11/03/21 10:00 11/09/21 10:27 Duloxetine 30 Mg Cap PO 60 mg QDAY AMINTA Administration Fish Oil 1,000 mg 11/03/21 10:00 11/09/21 10:28 [place]-3 Fatty Acids/Fish Oil 1 Gram Cap PO 1,000 mg BID AMINTA Administration Lisinopril 40 mg 11/03/21 10:00 11/09/21 10:29 Lisinopril 40 Mg Tab PO Not Given QDAY AMINTA Multivitamins/Minerals 1 each 11/03/21 10:00 11/09/21 10:28 Multivitamins,Ther W-Minerals Tab PO 1 each QDAY AMINTA Administration Polyethylene Glycol 17 gm 11/03/21 10:00 11/09/21 10:30 Polyethylene Glycol 3350 17 Gm Powder PO 17 gm BID AMINTA Administration Quetiapine Fumarate 25 mg 11/03/21 22:00 11/08/21 21:10 Quetiapine 25 Mg Tab PO 25 mg QHS AMINTA Administration Trazodone HCl 50 mg 11/03/21 22:00 11/08/21 21:10 Trazodone 50 Mg Tab PO 50 mg QHS AMINTA Administration Valproic Acid 125 mg 11/04/21 10:00 11/09/21 10:28 Valproic Acid 250 Mg/5 Ml Oral Liqd PO 125 mg DAILY AMINTA Administration Nutrition/Malnutrition Assess - Dietary Evaluation Nutrition/Malnutrition Findings: Nutrition Notes Start: 11/09/21 14:52 Freq: Status: Active Protocol: Document 11/09/21 14:52 IRISH (Rec: 11/09/21 15:03 IRISH [id number]) Nutrition Notes Need for Assessment generated from: LOS Initial or Follow up Assessment Other Pertinent Diagnosis Dementia w/Behavioral Disturbance. Current Diet Regular Diet (osince B 11/03). Labs/Tests 11/09: Cl 108.0 Pertinent Medications 11/09: Vit B12, Fish Oil, others nutritionally unremarkable. Height 5 ft Weight 63.6 kg Clarence Body Weight (kg) 48.18 BMI 27.3 Weight change and time frame Pt states being unsure if loss body weight [employer] WORK[employer]. Weight Status Overweight Subjective/Other Information RD consult for LOS assessment. Pt's PO intake of meals has been Good (75-100%), according to ADL notes. Pt to be discharged to a SNF whern clinically cleared. Percent of energy/protein needs met: Prescribed Regular Diet provides for energy/protein needs (2,289 Kcal/89 g) during LOS. Burn Absent Trauma Absent GI Symptoms None Food Allergy No Skin Integrity/Comment Assessment WNL. Current % PO Good (75-100%) Minimum of two criteria No #1 Nutrition Diagnosis No nutrition diagnosis at this time Is patient on ventilator? No Is Patient Ambulatory and/or Out of Bed Yes REE-([place] [place]-ambulatory/OOB) [ [id number] NUTR.[id number]] Kcal/Kg value to use for calculation 16 Approximate Energy Requirements Using 1018 kcal/Kg Calculation Used for Recommendations Kcal/kg Additional Notes Protein: 1-1.2 g/Kg ABW; 64-77 g/day. Fluids: 1 ml/Kcal, or as per MD. Nutrition Intervention Revisit per MD consult or patient Sign Off request: Additional Comments Continue monitoring food tolerance, %PO intake of meals , and BM.
[2021-11-09] MEDS: QUEtiapine 25 MG TAB PO SCH (21:09)
[2021-11-09] MEDS: DOXEPIN 25 MG CAP PO SCH (21:09)
[2021-11-09] MEDS: traZODone 50 MG TAB PO SCH (21:09)
[2021-11-10] MEDS: VALPROIC ACID 250 MG/5 ML ORAL LIQD PO SCH (09:28)
[2021-11-10] MEDS: POLYETHYLENE GLYCOL 3350 17 GM POWDER PO SCH (09:28)
[2021-11-10] MEDS: MULTIVITAMINS,THER W-MINERALS TAB PO SCH (09:29)
[2021-11-10] MEDS: CYANOCOBALAMIN (VIT B-12) 1000 MCG TAB PO SCH (09:29)
[2021-11-10] MEDS: OMEGA-3 FATTY ACIDS/FISH OIL 1 GRAM CAP PO SCH (09:29)
[2021-11-10] MEDS: DULoxetine 30 MG CAP PO SCH (09:29)
[2021-11-10] MEDS: ASPIRIN EC 81 MG TAB PO SCH (09:29)
[2021-11-10] MEDS: LISINOPRIL 40 MG TAB PO SCH (09:32)
[2021-11-10 09:34] VITALS: BP 136/69
--- NOTE | 2021-11-10 09:38 | Discharge Summary ---
Providers - Providers Date of Admission: 11/02/21 23:48 Date of discharge: 11/10/21 Attending physician: ELISEO GROSSMAN MD 11/02/21 22:19 Consult to Physician [CONS] Routine Comment: Consulting Provider: CLAUDETTE BEDOYA Physician Instructions: Ps manage existing problems. Reason For Exam: New admission Primary care physician: CABLE TOOL OPERATOR Hospitalization Reason for admission: Agitation/confused Admitting Diagnosis: F02.81 - DEMENTIA IN OTH DISEASES CLASSD ELSWHR W BEHAVIORAL DISTURB Hospital course: The patients behavior, anxiety and compliance to treatment are improved and stabilized. At the time of discharge, the patient had no suicidal ideas, no homicidal ideas, no aggressive thoughts, no endangering behavior and no debilitating adverse effects. The DPOA/guardian and family agreed on the treatment plan, understood the risk, benefit, alternative treatment, potential consequence of no treatment, and gave informed consent. Progress Note: 11/09/21: The patient was seen at breakfast. The patient continues to be confused, talking about his daughters and the police. He denies any current suicidal/homicidal ideation and denies hallucinations. 11/08/21: The patient was seen this morning. He is calm and reports doing well. The patient continues to be confused. He denies any current suicidal/homicidal ideation and denies hallucinations. Spoke with patient's daughter Mary @ [phone] and updated her on the current treatment plan; she states that the patient can not return to their home. 11/07/21: The patient was seen at breakfast this morning. He is alert and oriented x2; the patient is MODOC. The patient is confused " I have been asking for someone to call the police; I have a home and my and her children are trying to take over." He denies any current suicidal/homicidal ideation. No aggressive behavior noted. 11/06/21: The patient was seen this morning. The patient continues to be confused. He reports sleep and appetite as good. He denies any current suicidal/homicidal ideation and denies hallucinations. 11/05/21:The patient was seen today. The patient stays he is doing well; patient is confused stating " This is going to be an extremely difficult day for me, I'm going home and no one to pick me up." He denies any current suicidal/homicidal ideation and denies hallucinations. 11/04:The patient was seen today. He is lying in bed awake. He is calm and cooperative. He is pleasant. The patient is MODOC. He is confused and has poor insight. He says he slept good. He says "I was asleep." He repeated this twice. I ask the patient how did he feel, he says "fine, except I was asleep." He denies SI/HI. The patient has been noted to have periods of agitation, and reported delusions from staff and family. Disposition: 30 STILL A PATIENT Allergies/Adverse Reactions: Allergies cyclobenzaprine [From Flexeril] Adverse Reaction (Verified 09/20/19 12:06) HALLUCINATIONS diazepam Adverse Reaction (Verified 09/20/19 12:05) SEVERE HALLUCINATION Vital Signs: Last Vital Signs Temp 98.8 F 11/09/21 19:50 Pulse 70 11/10/21 09:32 Resp 20 11/09/21 19:50 BP 136/69 11/10/21 09:32 Pulse Ox 98 11/09/21 19:50 Last Lab: Laboratory Last Values WBC 6.2 K/mm3 (4.5-11.0) 11/03/21 06:31 RBC 4.73 M/mm3 (3.65-5.03) 11/03/21 06:31 Hgb 15.4 gm/dl (11.8-15.2) H 11/03/21 06:31 Hct 46.3 % (35.5-45.6) H 11/03/21 06:31 MCV 98 fl (84-94) H 11/03/21 06:31 MCH 33 pg (28-32) H 11/03/21 06:31 MCHC 33 % (32-34) 11/03/21 06:31 RDW 13.4 % (13.2-15.2) 11/03/21 06:31 Plt Count 241 K/mm3 (140-440) 11/03/21 06:31 Lymph % (Auto) 25.9 % (13.4-35.0) 11/03/21 06:31 [place] % (Auto) 10.0 % (0.0-7.3) H 11/03/21 06:31 Eos % (Auto) 1.6 % (0.0-4.3) 11/03/21 06:31 Baso % (Auto) 0.9 % (0.0-1.8) 11/03/21 06:31 Lymph # (Auto) 1.6 K/mm3 (1.2-5.4) 11/03/21 06:31 [place] # (Auto) 0.6 K/mm3 (0.0-0.8) 11/03/21 06:31 Eos # (Auto) 0.1 K/mm3 (0.0-0.4) 11/03/21 06:31 Baso # (Auto) 0.1 K/mm3 (0.0-0.1) 11/03/21 06:31 Seg Neutrophils % 61.6 % (40.0-70.0) 11/03/21 06:31 Seg Neutrophils # 3.8 K/mm3 (1.8-7.7) 11/03/21 06:31 Sodium 142 mmol/L (137-145) 11/03/21 06:31 Potassium 4.0 mmol/L (3.6-5.0) 11/03/21 06:31 Chloride 108.0 mmol/L (98-107) H 11/03/21 06:31 Carbon Dioxide 24 mmol/L (22-30) 11/03/21 06:31 Anion Gap 14 mmol/L 11/03/21 06:31 BUN 19 mg/dL (9-20) 11/03/21 06:31 Creatinine 0.8 mg/dL (0.8-1.3) 11/03/21 06:31 Estimated GFR > 60 ml/min 11/03/21 06:31 BUN/Creatinine Ratio 24 % 11/03/21 06:31 Glucose 86 mg/dL (75-100) 11/03/21 06:31 Hemoglobin A1c 5.2 % (4-6) 11/03/21 06:31 Calcium 9.1 mg/dL (8.4-10.2) 11/03/21 06:31 Total Bilirubin 0.50 mg/dL (0.1-1.2) 11/03/21 06:31 AST 15 units/L (5-40) 11/03/21 06:31 ALT 14 units/L (7-56) 11/03/21 06:31 Alkaline Phosphatase 69 units/L (35-129) 11/03/21 06:31 Total Protein 6.2 g/dL (6.3-8.2) L 11/03/21 06:31 Albumin 3.9 g/dL (3.9-5) 11/03/21 06:31 Albumin/Globulin Ratio 1.7 % 11/03/21 06:31 Triglycerides 78 mg/dL (2-149) 11/03/21 06:31 Cholesterol 160 mg/dL (50-199) 11/03/21 06:31 LDL Cholesterol Direct 101 mg/dL (50-130) 11/03/21 06:31 HDL Cholesterol 50 mg/dL (40-59) 11/03/21 06:31 Cholesterol/HDL Ratio 3.20 % 11/03/21 06:31 TSH 1.250 mlU/mL (0.270-4.200) 11/03/21 06:31 Core Measure Documentation - Palliative Care Palliative Care/ Comfort Measures: Not Applicable - Core Measures Any of the following diagnoses?: none - VTE Discharge Requirements Deep Vein Thrombosis/Pulmonary Embolism Present on Admission: No Exam - Constitutional Vitals: Temp Pulse Resp BP Pulse Ox 98.8 F 70 20 136/69 98 11/09/21 19:50 11/10/21 09:32 11/09/21 19:50 11/10/21 09:32 11/09/21 19:50 Plan Activity: advance as tolerated Weight Bearing Status: Weight Bear as Tolerated Diet: regular Care Plan Goals: Maintain good and stable mental health. Plan of Treatment: The patient should be compliant with medications, not to use drugs and not to drink alcohol.The patient understands that if suicidal ideas, homicidal ideas, or any endangering thoughts/behavior arise, they should immediately seek for emergent assistance including but not limited to crisis hot line and emergency room. Follow up with outpatient Psychiatrist and PCP within 7 - 14 days of discharge. Follow up with: PRIMARY CARE,MD [Primary Care Provider] - 7 Days Prescriptions: traZODone [Desyrel] 50 mg PO QHS 30 Days #30 tablet QUEtiapine [SEROquel] 25 mg PO QHS 30 Days #30 tablet Doxepin [SINEquan] 25 mg PO QHS 30 Days #30 capsule DULoxetine [Cymbalta] 60 mg PO QDAY 30 Days #60 capsule
--- NOTE | 2021-11-10 11:40 | Progress Note ---
Assessment and Plan Assessment and plan: 86 YO Male with Vascular Dementia with Behavioral Disturbance, Cerebral Atherosclerosis, HTN, CAD S/P Stent placement, GERD, LDD, OA, Skin Cancer, MDD, admitted to [facility] for psychiatric stabilization. Consult placed by Dr. Reyes for medical management. #Vascular dementia with behavioral disturbance Verbal prompting, verbal redirection, benzodiazepine therapy as clinically indicated, supportive care. #Cerebral atherosclerosis Risk factor reduction, antiplatelet therapy as clinically indicated, supportive care. #Major depression Supportive care, continue medical management. #Coronary artery disease Supportive care, continue medical management, risk factor reduction, antiplatel et therapy as clinically indicated. #GERD (gastroesophageal reflux disease) PPI therapy, supportive care. #Hypertension Monitor blood pressure every shift, continue medical management #Advanced care planning -Disease education conducted, care plan discussed, diagnoses discussed, prognosis discussed, and patient acknowledges understanding with care plan -Time: +30 min Thank you for this interesting consult. Patient will continue with the above listed plan. Please not hesitate to reach out to medicine should any questions arise. Medicine will be signing off. Disposition Plan: Discharging home Total Time Spent with Patient (Minutes): 30 min History Interval history: No acute events over night. The patient denies fevers, chills, nausea, vomiting, abdominal pain, chest pain/pressure, shortness of breath, urinary symptoms, weakness, or confusion. Hospitalist Physical - Constitutional Vitals: Temp Pulse Resp BP Pulse Ox 98.8 F 70 20 136/69 98 11/09/21 19:50 11/10/21 09:32 11/09/21 19:50 11/10/21 09:32 11/09/21 19:50 General appearance: Present: no acute distress, well-nourished - EENT Eyes: Present: PERRL, EOM intact ENT: hearing intact, clear oral mucosa - Neck Neck: Present: supple, normal ROM - Respiratory Respiratory effort: normal Respiratory: bilateral: CTA - Cardiovascular Rhythm: regular Heart Sounds: Present: S1 & S2 - Extremities Extremities: no ischemia, pulses intact, pulses symmetrical, No edema, normal t emperature, normal color Peripheral Pulses: within normal limits - Abdominal General gastrointestinal: soft, non-tender, non-distended, normal bowel sounds - Integumentary Integumentary: Present: clear, warm, dry - Psychiatric Psychiatric: appropriate mood/affect, cooperative - Neurologic Neurologic: CNII-XII intact - Allied Health Allied health notes reviewed: nursing Results - Labs CBC & Chem 7: 11/03/21 06:31 11/03/21 06:31 Labs: Laboratory Last Values WBC 6.2 K/mm3 (4.5-11.0) 11/03/21 06:31 RBC 4.73 M/mm3 (3.65-5.03) 11/03/21 06:31 Hgb 15.4 gm/dl (11.8-15.2) H 11/03/21 06:31 Hct 46.3 % (35.5-45.6) H 11/03/21 06:31 MCV 98 fl (84-94) H 11/03/21 06:31 MCH 33 pg (28-32) H 11/03/21 06:31 MCHC 33 % (32-34) 11/03/21 06:31 RDW 13.4 % (13.2-15.2) 11/03/21 06:31 Plt Count 241 K/mm3 (140-440) 11/03/21 06:31 Lymph % (Auto) 25.9 % (13.4-35.0) 11/03/21 06:31 Eddy % (Auto) 10.0 % (0.0-7.3) H 11/03/21 06:31 Eos % (Auto) 1.6 % (0.0-4.3) 11/03/21 06:31 Baso % (Auto) 0.9 % (0.0-1.8) 11/03/21 06:31 Lymph # (Auto) 1.6 K/mm3 (1.2-5.4) 11/03/21 06:31 Eddy # (Auto) 0.6 K/mm3 (0.0-0.8) 11/03/21 06:31 Eos # (Auto) 0.1 K/mm3 (0.0-0.4) 11/03/21 06:31 Baso # (Auto) 0.1 K/mm3 (0.0-0.1) 11/03/21 06:31 Seg Neutrophils % 61.6 % (40.0-70.0) 11/03/21 06:31 Seg Neutrophils # 3.8 K/mm3 (1.8-7.7) 11/03/21 06:31 Sodium 142 mmol/L (137-145) 11/03/21 06:31 Potassium 4.0 mmol/L (3.6-5.0) 11/03/21 06:31 Chloride 108.0 mmol/L (98-107) H 11/03/21 06:31 Carbon Dioxide 24 mmol/L (22-30) 11/03/21 06:31 Anion Gap 14 mmol/L 11/03/21 06:31 BUN 19 mg/dL (9-20) 11/03/21 06:31 Creatinine 0.8 mg/dL (0.8-1.3) 11/03/21 06:31 Estimated GFR > 60 ml/min 11/03/21 06:31 BUN/Creatinine Ratio 24 % 11/03/21 06:31 Glucose 86 mg/dL (75-100) 11/03/21 06:31 Hemoglobin A1c 5.2 % (4-6) 11/03/21 06:31 Calcium 9.1 mg/dL (8.4-10.2) 11/03/21 06:31 Total Bilirubin 0.50 mg/dL (0.1-1.2) 11/03/21 06:31 AST 15 units/L (5-40) 11/03/21 06:31 ALT 14 units/L (7-56) 11/03/21 06:31 Alkaline Phosphatase 69 units/L (35-129) 11/03/21 06:31 Total Protein 6.2 g/dL (6.3-8.2) L 11/03/21 06:31 Albumin 3.9 g/dL (3.9-5) 11/03/21 06:31 Albumin/Globulin Ratio 1.7 % 11/03/21 06:31 Triglycerides 78 mg/dL (2-149) 11/03/21 06:31 Cholesterol 160 mg/dL (50-199) 11/03/21 06:31 LDL Cholesterol Direct 101 mg/dL (50-130) 11/03/21 06:31 HDL Cholesterol 50 mg/dL (40-59) 11/03/21 06:31 Cholesterol/HDL Ratio 3.20 % 11/03/21 06:31 TSH 1.250 mlU/mL (0.270-4.200) 11/03/21 06:31 Lilly/IV: Voiding Method Toilet Active Medications - Current Medications Current Medications: Generic Name Dose Route Start Last Admin Trade Name Freq PRN Reason Stop Dose Admin Acetaminophen 650 mg 11/06/21 09:11 Acetaminophen 325 Mg Tab PO Q6H PRN Pain, Mild (1-3) Hydrocodone Bitart/Acetaminophen 1 each 11/03/21 14:00 Hydrocodone/Acetaminophen 7.5-325mg Tab PO Q8HR PRN Pain, Moderate (4-6) Aspirin 81 mg 11/03/21 10:00 11/10/21 09:29 Aspirin Ec 81 Mg Tab PO 81 mg QDAY AMINTA Administration Cyanocobalamin 2,000 mcg 11/04/21 10:00 11/10/21 09:29 Cyanocobalamin (Vit B-12) 1000 Mcg Tab PO 2,000 mcg QDAY AMINTA Administration Doxepin HCl 25 mg 11/03/21 22:00 11/09/21 21:09 Doxepin 25 Mg Cap PO 25 mg QHS AMINTA Administration Duloxetine HCl 60 mg 11/03/21 10:00 11/10/21 09:29 Duloxetine 30 Mg Cap PO 60 mg QDAY AMINTA Administration Fish Oil 1,000 mg 11/03/21 10:00 11/10/21 09:29 [place]-3 Fatty Acids/Fish Oil 1 Gram Cap PO 1,000 mg BID AMINTA Administration Lisinopril 40 mg 11/03/21 10:00 11/10/21 09:32 Lisinopril 40 Mg Tab PO 40 mg QDAY AMINTA Administration Multivitamins/Minerals 1 each 11/03/21 10:00 11/10/21 09:29 Multivitamins,Ther W-Minerals Tab PO 1 each QDAY AMINTA Administration Polyethylene Glycol 17 gm 11/03/21 10:00 11/10/21 09:28 Polyethylene Glycol 3350 17 Gm Powder PO 17 gm BID AMINTA Administration Quetiapine Fumarate 25 mg 11/03/21 22:00 11/09/21 21:09 Quetiapine 25 Mg Tab PO 25 mg QHS AMINTA Administration Trazodone HCl 50 mg 11/03/21 22:00 11/09/21 21:09 Trazodone 50 Mg Tab PO 50 mg QHS AMINTA Administration Valproic Acid 125 mg 11/04/21 10:00 11/10/21 09:28 Valproic Acid 250 Mg/5 Ml Oral Liqd PO 125 mg DAILY AMINTA Administration Nutrition/Malnutrition Assess - Dietary Evaluation Nutrition/Malnutrition Findings: Nutrition Notes Start: 11/09/21 14:52 Freq: Status: Active Protocol: Document 11/09/21 14:52 IRISH (Rec: 11/09/21 15:03 IRISH [id number]) Nutrition Notes Need for Assessment generated from: LOS Initial or Follow up Assessment Other Pertinent Diagnosis Dementia w/Behavioral Disturbance. Current Diet Regular Diet (osince B 11/03). Labs/Tests 11/09: Cl 108.0 Pertinent Medications 11/09: Vit B12, Fish Oil, others nutritionally unremarkable. Height 5 ft Weight 63.6 kg [place] Body Weight (kg) 48.18 BMI 27.3 Weight change and time frame Pt states being unsure if loss body weight [employer]. Weight Status Overweight Subjective/Other Information RD consult for LOS assessment. Pt's PO intake of meals has been Good (75-100%), according to ADL notes. Pt to be discharged to a SNF whern clinically cleared. Percent of energy/protein needs met: Prescribed Regular Diet provides for energy/protein needs (2,289 Kcal/89 g) during LOS. Burn Absent Trauma Absent GI Symptoms None Food Allergy No Skin Integrity/Comment Assessment WNL. Current % PO Good (75-100%) Minimum of two criteria No #1 Nutrition Diagnosis No nutrition diagnosis at this time Is patient on ventilator? No Is Patient Ambulatory and/or Out of Bed Yes REE-([facility]-ambulatory/OOB) [ [id number] [id number]] Kcal/Kg value to use for calculation 16 Approximate Energy Requirements Using 1018 kcal/Kg Calculation Used for Recommendations Kcal/kg Additional Notes Protein: 1-1.2 g/Kg ABW; 64-77 g/day. Fluids: 1 ml/Kcal, or as per MD. Nutrition Intervention Revisit per MD consult or patient Sign Off request: Additional Comments Continue monitoring food tolerance, %PO intake of meals , and BM.
== END 2021-11-10 11:10 | disposition home or self-care (01) | DRG 884 ==
LOC: UNDOADMIN 13:20 → 3A 13:20 → 5A 23:48
PROVIDERS: ADMIT Psychiatry & Neurology Psychiatry; ATTEND Psychiatry & Neurology Psychiatry
DX: F01.51 Vascular dementia, unspecified severity, with behavioral disturbance (principal); I10 Essential (primary) hypertension; I67.2 Cerebral atherosclerosis; F32.9 Major depressive disorder, single episode, unspecified; K21.9 Gastro-esophageal reflux disease without esophagitis; F41.9 Anxiety disorder, unspecified; M19.90 Unspecified osteoarthritis, unspecified site; I25.10 Atherosclerotic heart disease of native coronary artery without angina pectoris; Z88.8 Allergy status to other drugs, medicaments and biological substances; Z82.49 Family history of ischemic heart disease and other diseases of the circulatory system; Z79.82 Long term (current) use of aspirin
CPT/HCPCS: 36415; 80053; 80061; 83036; 84443; 85025; G0378